=== PATIENT | male | born 1955 | race Caucasian/White ===

== ENCOUNTER 2022-10-25 08:41 | Day surgery (SDC) | payer OTHER ==
[~2022-10-25 08:41] MED LIST: LACTATED RINGERS 1,000 ML IV SCH
[2022-10-25 09:15] VITALS: RESP 16; TEMP 97.8
[2022-10-25 09:29] LABS: Glucose,Whole Blood 102 mg/dL (70-110)
[2022-10-25] MEDS ORDERED: PROPOFOL 10 MG/ML 20 ML VIAL IV ONE (09:35)
[2022-10-25] MEDS ORDERED: LIDOCAINE 2% INJ 20 MG/ML (2 ML VIAL) ONE (09:35)
--- NOTE | 2022-10-25 09:46 | P.PCN ---
Date of Procedure: 10/25/22 Procedure(s) Performed: BRIEF HISTORY: Patient is a 67-year-old, pleasant, white female scheduled for an upper endoscopy as a part of evaluation of long-standing history of GERD. Presently on Protonix 40 mg daily.. PROCEDURE PERFORMED: Esophagogastroduodenoscopy with biopsy. PREOPERATIVE DIAGNOSIS: Long-standing history of GERD. IV sedation per anesthesia. PROCEDURE: After informed consent was obtained, the patient was brought into the endoscopy unit. IV sedation was administered by Anesthesia under continuous monitoring. Initially the Olympus GIF-140 video endoscope was inserted into the mouth. Esophagus intubated without any difficulty. It was gradually advanced into the stomach and duodenum and carefully examined. The bulb and the second part of the duodenum appeared normal. The scope at this time was withdrawn to the stomach, adequately insufflated with air, and upon careful examination, mucosa of the antrum, had scattered areas of erythema consistent with gastritis. Biopsies were done from this area. Mucosa of the body, cardia and the fundus appeared normal. The scope was then withdrawn into the esophagus. The GE junction was located at 40 cm from the incisors. There was a tongue of Rinaldi's appearing mucosa extending 1 cm proximal to the GE junction which was biopsied. The rest of the esophagus appeared normal. There were no erosions or ulcerations seen and the patient tolerated the procedure well. IMPRESSION: 1. Short segment Rinaldi's esophagus extending 39-40 cm from the incisors status post biopsy. 2. Mild antral gastritis. RECOMMENDATIONS: The findings of this examination were discussed with the patient as well as his family. He was advised to follow with the biopsy results. If the biopsy confirms the presence of Rinaldi's esophagus he can have a repeat upper endoscopy every 3 years. In the meantime he will continue on Protonix 40 mg daily and follow antireflux measures..
[2022-10-25 09:56] VITALS: PULSE 83
[2022-10-25 10:22] VITALS: BP 119/74
== END 2022-10-25 10:34 | disposition home or self-care (01) ==
LOC: ORWHC2ENDO 08:41
PROVIDERS: ATTEND Internal Medicine Gastroenterology
DX: K29.50 Unspecified chronic gastritis without bleeding (principal); K22.70 Barrett's esophagus without dysplasia; K21.00 Gastro-esophageal reflux disease with esophagitis, without bleeding; I48.91 Unspecified atrial fibrillation; Z79.899 Other long term (current) drug therapy; I10 Essential (primary) hypertension; E78.5 Hyperlipidemia, unspecified; E11.9 Type 2 diabetes mellitus without complications; Z79.02 Long term (current) use of antithrombotics/antiplatelets; Z79.82 Long term (current) use of aspirin; Z88.2 Allergy status to sulfonamides; Z79.85 Long-term (current) use of injectable non-insulin antidiabetic drugs
CPT/HCPCS: 88305; 43239; J2704; J2001

== ENCOUNTER 2023-07-10 10:12 | Day surgery (SDC) | payer OTHER ==
[~2023-07-10 10:12] MED LIST changes: +LIDOCAINE 1% (10MG/ML) FOR IV START INTRADERMA PRN; +ONDANSETRON 4 MG/2 ML VIAL IVP PRN
[2023-07-10] MEDS ORDERED: LACTATED RINGERS 1,000 ML IV ONE (11:27)
[2023-07-10 11:50] LABS: Glucose,Whole Blood 131 mg/dL (70-110)
[2023-07-10 12:06] VITALS: TEMP 97
[2023-07-10] MEDS ORDERED: PROPOFOL 10 MG/ML 20 ML VIAL IV ONE (12:32)
[2023-07-10] MEDS ORDERED: LIDOCAINE 1% INJ 10MG/ML (20 ML MDV) ONE (12:32)
--- NOTE | 2023-07-10 12:53 | P.PCN ---
Date of Procedure: 07/10/23 Procedure(s) Performed: BRIEF HISTORY: Patient is a 68-year-old pleasant male scheduled for an elective colonoscopy as a part of screening for colon cancer. PROCEDURE PERFORMED: Colonoscopy with snare polypectomy. PREOPERATIVE DIAGNOSIS: Screening for colon cancer. IV sedation per Anesthesia. PROCEDURE: After informed consent was obtained, the patient, was brought into the endoscopy unit. IV sedation was administered by Anesthesia under continuous monitoring. Digital rectal examination was normal. Initially the Olympus CF-160 flexible video colonoscope was then inserted in the rectum, gradually advanced into the cecum without any difficulty. Careful examination was performed as the scope was gradually being withdrawn. Ileocecal valve and the appendiceal orifice were visualized and appeared normal. Prep was excellent. Mucosa of the cecum, had a 5 limited polyp that was removed by cold snare polypectomy. Rest of the ascending colon, transverse colon, appeared normal. In the descending colon there was a 4 mm polyp that was removed by snare polypectomy. Rest of descending colon, sigmoid colon, and rectum appeared normal. Retroflexion was performed in the rectum and no lesions were seen. The patient tolerated the procedure well. Impression: 5 mm cecal polyp status post cold snare polypectomy 4 mm desscending colon polyp status post cold snare polypectomy . RECOMMENDATIONS: Findings of this examination were discussed with the patient .as well as her family. He was advised to follow with the biopsy results. If the biopsy reveals adenoma he can have a repeat colonoscopy in 5 years.
[2023-07-10 12:56] VITALS: RESP 16
[2023-07-10 13:04] LABS: Glucose,Whole Blood 111 mg/dL (70-110)
[2023-07-10 13:20] VITALS: BP 133/80; PULSE 82
== END 2023-07-10 13:33 | disposition home or self-care (01) ==
LOC: ORWHC2ENDO 10:12
PROVIDERS: ATTEND Internal Medicine Gastroenterology
DX: Z12.11 Encounter for screening for malignant neoplasm of colon (principal); D12.4 Benign neoplasm of descending colon; I10 Essential (primary) hypertension; I48.91 Unspecified atrial fibrillation; F17.200 Nicotine dependence, unspecified, uncomplicated; E11.9 Type 2 diabetes mellitus without complications; K21.9 Gastro-esophageal reflux disease without esophagitis; Z86.010 Personal history of colon polyps; Z88.2 Allergy status to sulfonamides; Z79.899 Other long term (current) drug therapy
CPT/HCPCS: 45385; 88305

== ENCOUNTER 2024-09-23 21:09 | Emergency (ER) | payer OTHER ==
[2024-09-23 21:19] VITALS: RESP 16
--- NOTE | 2024-09-23 21:49 | CT ---
EXAMINATION TYPE: CT brain cspine wo con CT DLP: 1668.3 mGycm, Automated exposure control for dose reduction was used. DATE OF EXAM: 09/23/2024 9:39 PM COMPARISON: None.. CLINICAL INDICATION:Male, 69 years old with history of fall; Pt was taking garbage out & tripped. On Eliquis. Denies pain. + ETOH use, pain TECHNIQUE: Brain: Multiple axial CT images of the brain were obtained without IV contrast. Cspine: Axial CT images from the skull base to the inferior aspect of T2 we obtained without intraven ous contrast. Coronal and sagittal reformatted images were also reviewed. FINDINGS: Brain: Extra-axial spaces: No abnormal extra-axial fluid collections. Ventricular system: Within normal limits Cerebral parenchyma: Cerebral atrophy. No acute intraparenchymal hemorrhage or mass effect. The quinones -white junction is well differentiated. Scattered hypoattenuating areas are seen within the periventr icular white matter. Cerebellum: Unremarkable. Mass effect: No evidence of midline shift. Intracranial vasculature: Atherosclerotic calcifications of the intracranial vessels. Soft tissues: Right forehead near midline soft tissue foci of gas and stranding consistent with lacer ation. Calvarium/osseous structures: No depressed skull fracture. Paranasal sinuses and mastoid air cells: The mastoid air cells are clear. Mild mucosal thickening of the ethmoid sinuses. Remaining visualized paranasal sinuses are clear. Visualized orbits: Orbital contents are intact. Cervical spine: Fracture: None. Osseous structures: Multilevel degenerative disc disease changes with endplate spurring and disc oste ophyte complex's. Vertebral alignment: Degenerative grade 1 anterolisthesis of C7 on T1. Spinal canal/Neural Foramina: Disc osteophyte complexes at C3-C4, C4-C5, C5-C6 and C6-C7 with at leas t mild spinal canal stenosis. Facet joint uncovertebral joint arthropathy scattered throughout the ce rvical spine with varying degrees of neural foraminal stenosis. Neck soft tissues: Prevertebral soft tissues are within normal limits. Other: The airway is patent. The lung apices are clear. Bilateral carotid bulb calcifications. IMPRESSION: 1. No acute intracranial process. 2. Nonspecific white matter changes, likely secondary to chronic small vessel ischemic disease. 3. Acute right forehead soft tissue laceration. 4. No evidence of cervical spine fracture. 5. Moderate multilevel degenerative disc disease. [facility], , 09/23/2024 9:47 PM
[2024-09-23 22:01] VITALS: TEMP 98.3
[2024-09-23] MEDS: TOPICAL SKIN ADHESIVE 1 EACH AMP TOPICAL ONE (22:10)
--- NOTE | 2024-09-23 22:17 | ED ---
Fall HPI - General Chief Complaint: Fall Stated Complaint: Fall-Head Injury-Blood Thinners Time Seen by Provider: 09/23/24 21:23 Source: patient, RN notes reviewed, old records reviewed Mode of arrival: wheelchair Limitations: no limitations - History of Present Illness Initial Comments: This is a 69-year-old male trip and fall fall with alcohol intoxication forehead laceration. 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 Witnessed: yes, by family Place Fall Occurred: home Loss of Consciousness: none Prolonged Down Time?: no Symptoms Prior to Fall: none Location: head, face Severity: moderate Severity scale (1-10): 6 Quality: sharp, stabbing Context: tripped/slipped, alcohol use Associated Symptoms: denies - Related Data Home Medications Medication Instructions Recorded Confirmed Aspirin 81 mg PO DAILY 10/20/22 07/10/23 Atorvastatin [Lipitor] 80 mg PO HS 10/20/22 07/10/23 Clopidogrel [Plavix] 75 mg PO DAILY 10/20/22 07/10/23 Dapagliflozin/Metformin HCl 1 tab PO BID 10/20/22 07/10/23 [Xigduo Xr 5 mg-1,000 mg Tablet] Dulaglutide [Trulicity] 0.75 mg SQ WE 10/20/22 07/10/23 Ezetimibe [Zetia] 10 mg PO DAILY 10/20/22 07/10/23 Furosemide [Lasix] 40 mg PO DAILY 10/20/22 07/10/23 Losartan(Unknown Dose) 1 tab PO DAILY 10/20/22 07/10/23 Metoprolol Tartrate [Lopressor] 25 mg PO BID 10/20/22 07/10/23 Pantoprazole [Protonix] 40 mg PO DAILY 10/20/22 07/10/23 Potassium Chloride ER [K-Dur 20] 20 meq PO DAILY 10/20/22 07/10/23 glipiZIDE [Glucotrol] 5 mg PO AC-BRKFST 10/20/22 07/10/23 Allergies Allergy/AdvReac Type Severity Reaction Status Date / Time Sulfa (Sulfonamide Allergy Unknown Verified 07/10/23 11:33 Antibiotics) Childhood nickel sulfate Allergy hives Uncoded 07/10/23 11:33 Review of Systems ROS Statement: Those systems with pertinent positive or pertinent negative responses have been documented in the HPI. ROS Other: All systems not noted in ROS Statement are negative. Past Medical History Past Medical History: Atrial Fibrillation, Cancer, Diabetes Mellitus, GERD/Reflux, Hyperlipidemia, Hypertension, Osteoarthritis (OA), Vascular Disorder Additional Past Medical History / Comment(s): skin cancer, DDD, past hx. a-fib-had ablation, just had a tooth pulled History of Any Multi-Drug Resistant Organisms: None Reported Past Surgical History: Cardiac Ablation Additional Past Surgical History / Comment(s): stent placement to open circulation to right leg Past Anesthesia/Blood Transfusion Reactions: No Reported Reaction Past Psychological History: No Psychological Hx Reported Smoking Status: Former smoker Past Alcohol Use History: Heavy - Past Family History Mother Family Medical History: Deep Vein Thrombosis (DVT) Father Family Medical History: Deep Vein Thrombosis (DVT) Sister(s) Family Medical History: Deep Vein Thrombosis (DVT) General Exam Limitations: no limitations General appearance: alert, in no apparent distress Head exam: Present: normocephalic, normal inspection. Absent: atraumatic (3 cm forehead laceration) Eye exam: Present: normal appearance, PERRL, EOMI. Absent: scleral icterus, conjunctival injection, periorbital swelling ENT exam: Present: normal exam, mucous membranes moist Neck exam: Present: normal inspection. Absent: tenderness, meningismus, lymphadenopathy Respiratory exam: Present: normal lung sounds bilaterally. Absent: respiratory distress, wheezes, rales, rhonchi, stridor Cardiovascular Exam: Present: regular rate, normal rhythm, normal heart sounds. Absent: systolic murmur, diastolic murmur, rubs, gallop, clicks GI/Abdominal exam: Present: soft, normal bowel sounds. Absent: distended, tenderness, guarding, rebound, rigid Extremities exam: Present: normal inspection, full ROM, normal capillary refill. Absent: tenderness, pedal edema, joint swelling, calf tenderness Back exam: Present: normal inspection Neurological exam: Present: alert, oriented X3, CN II-XII intact Psychiatric exam: Present: normal affect, normal mood Skin exam: Present: warm, dry, intact, normal color. Absent: rash Course Vital Signs 09/23/24 09/23/24 09/23/24 21:15 21:53 22:25 Temperature 97.7 F 98.3 F Pulse Rate 95 82 Respiratory 16 16 Rate Blood Pressure 125/67 130/79 O2 Sat by Pulse 96 97 Oximetry - Reevaluation(s) Reevaluation #1: Medical records reviewed Reevaluation #2: Patient's symptoms improved Reevaluation #3: Patient informed of results questions answered Reevaluation #4: Was pt. sent in by a medical professional or institution (, [facility], [facility], urgent care, hospital, or longterm...) When possible be specific @ -no Did you speak to anyone other than the patient for history (EMS, parent, family, police, friend...)? What history was obtained from this source @ -no Did you review nursing and triage notes (agree or disagree)? Why? @ -agree Are old charts reviewed (outside hosp., previous admission, EMS record, old EKG, old radiological studies, urgent care reports/EKG's, longterm records)? Report findings @ -yes Differential Diagnosis (chest pain, altered mental status, abdominal pain women, abdominal pain men, vaginal bleeding, weakness, fever, dyspnea, syncope, headache, dizziness, GI bleed, back pain, seizure, CVA, palpatations, mental health, musculoskeletal)? @ -prior EKG interpreted by me (3pts min.). @ -yes X-rays interpreted by me (1pt min.). @ -yes negative for acute disease CT interpreted by me (1pt min.). @ -no U/S interpreted by me (1pt. min.). @ -no What testing was considered but not performed or refused? (CT, X-rays, U/S, labs)? Why? @ -none What meds were considered but not given or refused? Why? @ -none Did you discuss the management of the patient with other professionals (professionals i.e. , [facility], [facility], lab, RT, psych nurse, social security specialist, escort blind, teacher, title officer, pillowcase turner)? Give summary @ -no Was smoking cessation discussed for >3mins.? @ -no Was critical care preformed (if so, how long)? @ -no Were there social determinants of health that impacted care today? How? (Homelessness, low income, unemployed, alcoholism, drug addiction, transportation, low edu. Level, literacy, decrease access to med. care, long term, rehab)? @ -none Was there de-escalation of care discussed even if they declined (Discuss DNR or withdrawal of care, Hospice)? DNR status @ -no What co-morbidities impacted this encounter? (DM, HTN, Smoking, COPD, CAD, Cancer, CVA, ARF, Chemo, Hep., AIDS, mental health diagnosis, sleep apnea, morbid obesity)? @ -none Was patient admitted / discharged? Hospital course, mention meds given and route, prescriptions, significant lab abnormalities, going to OR and other pertinent info. @ - Undiagnosed new problem with uncertain prognosis? @ -no Drug Therapy requiring intensive monitoring for toxicity (Heparin, Nitro, Insulin, Cardizem)? @ -no Were any procedures done? @ -no Diagnosis/symptom? @ - Acute, or Chronic, or Acute on Chronic? @ -Acute Uncomplicated (without systemic symptoms) or Complicated (systemic symptoms)? @ -Complicated Side effects of treatment? @ -no Exacerbation, Progression, or Severe Exacerbation? @ -exacerbation Poses a threat to life or bodily function? How? (Chest pain, USA, PA, pneumonia, PE, COPD, DKA, ARF, appy, cholecystitis, CVA, Diverticulitis, Homicidal, Suicidal, threat to staff... and all critical care pts) @ -yes Procedures - Laceration Laceration #1 Consent Obtained: verbal consent Indication: laceration Site: face Size (cm): 3 Description: linear Depth: simple, single layer Size of Sutures: 5-0, other (Skin glue) Technique: simple, interrupted Patient Tolerated Procedure: well Medical Decision Making - Medical Decision Making 69 male for alcohol intoxication trip and fall with head laceration, laceration was repaired here in the ER 3 cm for laceration, patient feels improved and can be discharged home CT scan negative - Radiology Data Radiology results: report reviewed (CT brain C-spine negative for acute dis ease), image reviewed Disposition Clinical Impression: Fall, Head injury, Laceration of forehead Disposition: HOME SELF-CARE Condition: Fair Instructions (If sedation given, give patient instructions): Fall Prevention for Older Adults (ED), Skin Adhesive Care (ED) Is patient prescribed a controlled substance at d/c from ED?: No Referrals: Arthur Howard MD [Primary Care Provider] - 1-2 days Time of Disposition: 22:00
[2024-09-23 22:26] VITALS: BP 130/79; PULSE 82
== END 2024-09-23 22:26 | disposition home or self-care (01) ==
LOC: EC 21:09
DX: S01.81XA Laceration without foreign body of other part of head, initial encounter (principal); F10.129 Alcohol abuse with intoxication, unspecified; Z87.891 Personal history of nicotine dependence; Z88.2 Allergy status to sulfonamides; Z88.8 Allergy status to other drugs, medicaments and biological substances; W01.0XXA Fall on same level from slipping, tripping and stumbling without subsequent striking against object, initial encounter
CPT/HCPCS: 12013; 70450; 72125; 99283

== ENCOUNTER → 2024-10-21 | Outpatient (CLI) | payer OTHER ==
[2024-10-21 15:07] LABS: ALT 48 U/L (10-49); AST 56 U/L (14-35); Albumin 4.1 g/dL (3.8-4.9); Albumin/Globulin Ratio 1.52 Ratio (1.60-3.17); Alkaline Phosphatase 63 U/L (41-126); BUN/Creat Ratio 12.58 Ratio (12.00-20.00); Blood Urea Nitrogen 15.1 mg/dL (9.0-27.0); Calcium 10.4 mg/dL (8.7-10.3); Carbon Dioxide 27.7 mmol/L (21.6-31.8); Chloride 97 mmol/L (96-109); Globulin 2.7 g/dL (1.6-3.3); Glucose 104 mg/dL (70-110); Potassium 3.7 mmol/L (3.5-5.5); Sodium 140 mmol/L (135-145); Total Bilirubin 0.6 mg/dL (0.3-1.2); Total Protein 6.8 g/dL (6.2-8.2)
== END | disposition home or self-care (01) ==
LOC: LABWHC1 09:25
PROVIDERS: ATTEND Family Medicine
DX: E11.9 Type 2 diabetes mellitus without complications (principal)
CPT/HCPCS: 36415; 80053; 83036

== ENCOUNTER 2024-10-26 23:50 | Inpatient (IN) | payer OTHER ==
--- NOTE | 2024-10-26 23:54 | ED ---
Syncope HPI - General Stated Complaint: Syncope Time Seen by Provider: 10/26/24 23:53 Source: RN notes reviewed, old records reviewed Mode of arrival: ambulatory Limitations: no limitations - History of Present Illness Initial Comments: This is a 69-year-old male with multiple syncopal events throughout the day 1 event with resultant fall with head injury did hit his head on Eliquis for history of atrial fibrillation MD Complaint: loss of consciousness, collapsed, other (200) -: days(s) Prodromal Symptoms: headache -: second(s) Witnessed: yes - by bystander Injuries Sustained Associated with Event: None Current Symptoms: none History: previous syncopal episode Context: during exertion, getting out of bed Treatments Prior to Arrival: none - Related Data Home Medications Medication Instructions Recorded Confirmed Aspirin 81 mg PO DAILY 10/20/22 10/27/24 Atorvastatin [Lipitor] 80 mg PO HS 10/20/22 10/27/24 Dapagliflozin/Metformin HCl 1 tab PO DAILY 10/20/22 10/27/24 [Xigduo Xr 5 mg-1,000 mg Tablet] Ezetimibe [Zetia] 10 mg PO DAILY 10/20/22 10/27/24 Furosemide [Lasix] 40 mg PO DAILY 10/20/22 10/27/24 Metoprolol Tartrate [Lopressor] 25 mg PO BID 10/20/22 10/27/24 Potassium Chloride ER [K-Dur 20] 20 meq PO HS 10/20/22 10/27/24 Apixaban [Eliquis] 5 mg PO BID 10/27/24 10/27/24 Losartan/Hydrochlorothiazide 1 tab PO DAILY 10/27/24 10/27/24 [Hyzaar 100-25 Tablet] Semaglutide [Ozempic] 1 mg SQ WE 10/27/24 10/27/24 glipiZIDE XL [Glucotrol XL] 2.5 mg PO HS 10/27/24 10/27/24 Allergies Allergy/AdvReac Type Severity Reaction Status Date / Time Sulfa (Sulfonamide Allergy Rash/Hives Verified 10/27/24 07:32 Antibiotics) nickel sulfate Allergy hives Uncoded 10/27/24 07:32 Review of Systems ROS Statement: Those systems with pertinent positive or pertinent negative responses have been documented in the HPI. ROS Other: All systems not noted in ROS Statement are negative. Past Medical History Past Medical History: Atrial Fibrillation, Cancer, Diabetes Mellitus, GERD/Reflux, Hyperlipidemia, Hypertension, Osteoarthritis (OA), Vascular Disorder Additional Past Medical History / Comment(s): skin cancer, DDD, past hx. a-fib-had ablation, just had a tooth pulled History of Any Multi-Drug Resistant Organisms: None Reported Past Surgical History: Cardiac Ablation Additional Past Surgical History / Comment(s): stent placement to open circulation to right leg Past Anesthesia/Blood Transfusion Reactions: No Reported Reaction Past Psychological History: No Psychological Hx Reported Smoking Status: Former smoker Past Alcohol Use History: Heavy - Past Family History Mother Family Medical History: Deep Vein Thrombosis (DVT) Father Family Medical History: Deep Vein Thrombosis (DVT) Sister(s) Family Medical History: Deep Vein Thrombosis (DVT) General Exam General appearance: alert, in no apparent distress Head exam: Present: atraumatic, normocephalic, normal inspection Eye exam: Present: normal appearance, PERRL, EOMI. Absent: scleral icterus, conjunctival injection, periorbital swelling ENT exam: Present: normal exam, mucous membranes moist Neck exam: Present: normal inspection. Absent: tenderness, meningismus, lymphadenopathy Respiratory exam: Present: normal lung sounds bilaterally. Absent: respiratory distress, wheezes, rales, rhonchi, stridor Cardiovascular Exam: Present: regular rate, normal rhythm, normal heart sounds. Absent: systolic murmur, diastolic murmur, rubs, gallop, clicks GI/Abdominal exam: Present: soft, normal bowel sounds. Absent: distended, tenderness, guarding, rebound, rigid Extremities exam: Present: normal inspection, full ROM, normal capillary refill. Absent: tenderness, pedal edema, joint swelling, calf tenderness Back exam: Present: normal inspection Neurological exam: Present: alert, oriented X3, CN II-XII intact Psychiatric exam: Present: normal affect, normal mood Skin exam: Present: warm, dry, intact, normal color. Absent: rash Course Vital Signs 10/26/24 10/27/24 10/27/24 23:58 01:02 03:00 Temperature 98.0 F Pulse Rate 93 79 77 Respiratory 14 17 10 L Rate Blood Pressure 119/61 168/77 105/66 O2 Sat by Pulse 99 97 100 Oximetry 05/12/25 05/12/25 05/12/25 04:00 07:00 07:55 Temperature 98.3 F Pulse Rate 77 49 L 80 Respiratory 15 10 L 18 Rate Blood Pressure 113/89 127/66 141/67 O2 Sat by Pulse 100 100 97 Oximetry - Reevaluation(s) Reevaluation #1: 10/27/24 00:06 Records reviewed Reevaluation #2: 10/27/24 00:06 No recurrent syncope here in the ER Reevaluation #4: Was pt. sent in by a medical professional or institution (REJI Burden, FLOTATION OPERATOR, urgent care, hospital, or residential...) When possible be specific @ -no Did you speak to anyone other than the patient for history (EMS, parent, family, police, friend...)? What history was obtained from this source @ -no Did you review nursing and triage notes (agree or disagree)? Why? @ -agree Are old charts reviewed (outside hosp., previous admission, EMS record, old EKG, old radiological studies, urgent care reports/EKG's, residential records)? Report findings @ -yes Differential Diagnosis (chest pain, altered mental status, abdominal pain women, abdominal pain men, vaginal bleeding, weakness, fever, dyspnea, syncope, headache, dizziness, GI bleed, back pain, seizure, CVA, palpatations, mental health, musculoskeletal)? @ -prior EKG interpreted by me (3pts min.). @ -yes X-rays interpreted by me (1pt min.). @ -yes negative for acute disease CT interpreted by me (1pt min.). @ -no U/S interpreted by me (1pt. min.). @ -no What testing was considered but not performed or refused? (CT, X-rays, U/S, labs)? Why? @ -none What meds were considered but not given or refused? Why? @ -none Did you discuss the management of the patient with other professionals (professionals i.e. REJI Burden, FLOTATION OPERATOR, lab, RT, psych nurse, social sciences chair, gauge checker, teacher, low altitude air defense officer, therapeutic case manager)? Give summary @ -no Was smoking cessation discussed for >3mins.? @ -no Was critical care preformed (if so, how long)? @ -no Were there social determinants of health that impacted care today? How? (Homelessness, low income, unemployed, alcoholism, drug addiction, transportation, low edu. Level, literacy, decrease access to med. care, fci, re hab)? @ -none Was there de-escalation of care discussed even if they declined (Discuss DNR or withdrawal of care, Hospice)? DNR status @ -no What co-morbidities impacted this encounter? (DM, HTN, Smoking, COPD, CAD, Cancer, CVA, ARF, Chemo, Hep., AIDS, mental health diagnosis, sleep apnea, morbid obesity)? @ -none Was patient admitted / discharged? Hospital course, mention meds given and route, prescriptions, significant lab abnormalities, going to OR and other pertinent info. @ - Undiagnosed new problem with uncertain prognosis? @ -no Drug Therapy requiring intensive monitoring for toxicity (Heparin, Nitro, Insulin, Cardizem)? @ -no Were any procedures done? @ -no Diagnosis/symptom? @ - Acute, or Chronic, or Acute on Chronic? @ -Acute Uncomplicated (without systemic symptoms) or Complicated (systemic symptoms)? @ -Complicated Side effects of treatment? @ -no Exacerbation, Progression, or Severe Exacerbation? @ -exacerbation Poses a threat to life or bodily function? How? (Chest pain, USA, MT, pneumonia, PE, COPD, DKA, ARF, appy, cholecystitis, CVA, Diverticulitis, Homicidal, Suicidal, threat to staff... and all critical care pts) @ -yes Reevaluation #5: Differential Syncope: Valvular disease, hypertrophic cardiomyopathy, pulmonary embolism, tamponade, tachycardia, bradycardia, MT, hypovolemia, hemorrhage, dissection, anemia, intracranial hemorrhage, seizure, hypoglycemia, carbon monoxide poisoning, this is not meant to be an all-inclusive list. EKG Findings - EKG Comments: EKG Findings:: EKG is A-fib 94 QRS 100 QTc 436 - EKG Results: EKG: interpreted by DANYELL Medical Decision Making - Lab Data Result diagrams: 10/27/24 00:10 10/27/24 02:17 Lab Results 10/27/24 10/27/24 10/27/24 Range/Units 00:10 00:10 01:19 WBC 11.14 H (4.50-10.00) 10*3/uL RBC 4.39 L (4.40-5.60) 10*6/uL Hgb 14.5 (13.0-17.0) g/dL Hct 39.9 (39.6-50.0) % MCV 90.9 (80.0-97.0) fL MCH 33.0 H (27.0-32.0) pg MCHC 36.3 (32.0-37.0) g/dL Plt Count 229 (140-440) 10*3/uL MPV 9.8 (9.5-12.2) fL Immature Gran % (Auto) 0.3 % Neutrophils % 68.3 % Lymphocytes % 21.6 % Monocytes % 8.0 % Eosinophils % 1.3 % Basophils % 0.5 % Immature Gran # 0.03 (0.00-0.04) 10*3/uL Neutrophils # 7.60 (1.80-7.70) 10*3/uL Lymphocytes # 2.41 (0.90-5.00) 10*3/uL Monocytes # 0.89 (0.20-1.00) 10*3/uL Eosinophils # 0.15 (0.04-0.35) 10*3/uL Basophils # 0.06 (0.00-0.10) 10*3/uL PT 10.9 (10.0-12.5) sec INR 1.0 (<1.2) APTT 19.1 L (22.0-30.0) sec D-Dimer 0.32 (<0.60) mg/L FEU Sodium 130 L (137-145) mmol/L Potassium 3.0 L (3.5-5.1) mmol/L Chloride 88 L (98-107) mmol/L Carbon Dioxide 33 H (22-30) mmol/L Anion Gap 9 mmol/L BUN 26 H (9-20) mg/dL Creatinine 2.32 H (0.66-1.25) mg/dL Est GFR (CKD-EPI)AfAm 32 (>60 ml/min/1.73 sqM) Est GFR (CKD-EPI)NonAf 28 (>60 ml/min/1.73 sqM) Glucose 132 H (74-99) mg/dL Calcium 17.8 H* (8.4-10.2) mg/dL Magnesium 1.5 L (1.6-2.3) mg/dL Total Bilirubin 1.9 H (0.2-1.3) mg/dL AST 89 H (17-59) U/L ALT 59 H (4-49) U/L Alkaline Phosphatase 53 (38-126) U/L Troponin I (0.000-0.034) ng/mL Total Protein 6.3 (6.3-8.2) g/dL Albumin 3.7 (3.5-5.0) g/dL Serum Alcohol <10 mg/dL 10/27/24 10/27/24 10/27/24 Range/Units 01:19 02:17 02:17 WBC (4.50-10.00) 10*3/uL RBC (4.40-5.60) 10*6/uL Hgb (13.0-17.0) g/dL Hct (39.6-50.0) % MCV (80.0-97.0) fL MCH (27.0-32.0) pg MCHC (32.0-37.0) g/dL Plt Count (140-440) 10*3/uL MPV (9.5-12.2) fL Immature Gran % (Auto) % Neutrophils % % Lymphocytes % % Monocytes % % Eosinophils % % Basophils % % Immature Gran # (0.00-0.04) 10*3/uL Neutrophils # (1.80-7.70) 10*3/uL Lymphocytes # (0.90-5.00) 10*3/uL Monocytes # (0.20-1.00) 10*3/uL Eosinophils # (0.04-0.35) 10*3/uL Basophils # (0.00-0.10) 10*3/uL PT (10.0-12.5) sec INR (<1.2) APTT (22.0-30.0) sec D-Dimer (<0.60) mg/L FEU Sodium 128 L (137-145) mmol/L Potassium 3.6 (3.5-5.1) mmol/L Chloride 87 L (98-107) mmol/L Carbon Dioxide 34 H (22-30) mmol/L Anion Gap 7 mmol/L BUN 28 H (9-20) mg/dL Creatinine 2.20 H (0.66-1.25) mg/dL Est GFR (CKD-EPI)AfAm 34 (>60 ml/min/1.73 sqM) Est GFR (CKD-EPI)NonAf 30 (>60 ml/min/1.73 sqM) Glucose 105 H (74-99) mg/dL Calcium 18.9 H* (8.4-10.2) mg/dL Magnesium (1.6-2.3) mg/dL Total Bilirubin 2.3 H (0.2-1.3) mg/dL AST 95 H (17-59) U/L ALT 63 H (4-49) U/L Alkaline Phosphatase 50 (38-126) U/L Troponin I 0.133 H* 0.133 H* (0.000-0.034) ng/mL Total Protein 6.6 (6.3-8.2) g/dL Albumin 3.8 (3.5-5.0) g/dL Serum Alcohol mg/dL Disposition Clinical Impression: Syncope, Head injury, Nausea & vomiting, Fainting spell, Dehydration, Hypomagnesemia, Hypokalemia, Hypercalcemia, SLADE (acute kidney injury), NSTEMI (non-ST elevated myocardial infarction) Disposition: ADMITTED IP TO THIS HOSP Condition: Serious Is patient prescribed a controlled substance at d/c from ED?: No Time of Disposition: 01:00
[2024-10-27 00:22] LABS: Basophils # (A) 0.06 10*3/uL (0.00-0.10); Basophils % (A) 0.5 %; Eosinophils # (A) 0.15 10*3/uL (0.04-0.35); Eosinophils % (A) 1.3 %; HCT 39.9 % (39.6-50.0); HGB 14.5 g/dL (13.0-17.0); Lymphocytes # (A) 2.41 10*3/uL (0.90-5.00); Lymphocytes % (A) 21.6 %; MCHC 36.3 g/dL (32.0-37.0); MCV 90.9 fL (80.0-97.0); Mean Platelet Volume 9.8 fL (9.5-12.2); Monocytes # (A) 0.89 10*3/uL (0.20-1.00); Neutrophils % (A) 68.3 %; Platelet Count 229 10*3/uL (140-440); RBC 4.39 10*6/uL (4.40-5.60); RDW 14.3 % (11.5-14.5); WBC 11.14 10*3/uL (4.50-10.00)
[2024-10-27] MEDS: SODIUM CHLORIDE 0.9% 1,000 ML IV STA (00:38)
[2024-10-27] MEDS: SODIUM CHLORIDE 0.9% 500 ML 500 ML IV STA (00:38)
[2024-10-27 00:47] LABS: Prothrombin Time 10.9 sec (10.0-12.5)
[2024-10-27 00:53] LABS: Partial Thromboplastin Time 19.1 sec (22.0-30.0)
--- NOTE | 2024-10-27 00:55 | CT ---
EXAM: CT Head Without Intravenous Contrast CLINICAL HISTORY: Fall TECHNIQUE: Axial computed tomography images of the head/brain without intravenous contrast. CTDI is 45.2 mGy and DLP is 1128 mGy-cm. This CT exam was performed using one or more of the following dose reduction techniques: automated exposure control, adjustment of the mA and/or kV according to patient size, and/or use of iterative reconstruction technique. COMPARISON: No relevant prior studies available. FINDINGS: Brain: No intracranial hemorrhage. No significant mass-effect. No cortical infarct. Diffuse chronic prominence of the cerebral sulci and sylvian fissures incidentally noted. No significant white matter disease. Ventricles: Unremarkable. No ventriculomegaly. Bones/joints: Unremarkable. No acute fracture. Soft tissues: No significant overlying acute traumatic soft tissue abnormality. No radiopaque foreign body. Sinuses: No acute traumatic injury involving the paranasal sinuses. Incidental postoperative changes involving the nasal turbinates and medial maxillary sinus wall bilaterally. Mastoid air cells: Unremarkable as visualized. No mastoid effusion. IMPRESSION: No acute intracranial process identified. EXAM: CT Cervical Spine Without Intravenous Contrast CLINICAL HISTORY: Fall TECHNIQUE: Axial computed tomography images of the cervical spine without intravenous contrast. CTDI is 14.5 mGy and DLP is 435.3 mGy-cm. This CT exam was performed using one or more of the following dose reduction techniques: automated exposure control, adjustment of the mA and/or kV according to patient size, and/or use of iterative reconstruction technique. COMPARISON: No relevant prior studies available. FINDINGS: Vertebrae: The vertebral bodies are intact without acute osseous traumatic injury. 1-2 mm retrolisthesis at each cervical level from C3- C6 level. 2 mm anterolisthesis involving C7 on T1. The facet joints are well aligned without subluxation or dislocation. The pedicles, transverse processes and spinous processes are intact. Diffuse facet hypertrophic arthrosis noted bilaterally. Discs/spinal canal/neural foramina: Moderate to moderately severe disc spondylosis with narrowing and circumferential disc marginal osteophytes from C3-4 through C6-7. Disc space narrowing with vacuum phenomenon at C7-T1. No acute central canal stenosis with multilevel chronic narrowing noted. Soft tissues: Unremarkable. Lung apices: The included lung apices demonstrate no evidence for acute traumatic injury. IMPRESSION: No acute osseous traumatic injury or significant acute traumatic abnormal alignment involving the cervical spine. Diffuse chronic degenerative changes incidentally noted.
[2024-10-27 01:49] LABS: ALT 59 U/L (4-49); AST 89 U/L (17-59); African American GFR (CKD) 32 (>60 ml/min/1.73 sqM); Albumin 3.7 g/dL (3.5-5.0); Alcohol <10 mg/dL; Alkaline Phosphatase 53 U/L (38-126); Anion Gap 9 mmol/L; Blood Urea Nitrogen 26 mg/dL (9-20); Carbon Dioxide 33 mmol/L (22-30); Chloride 88 mmol/L (98-107); Glucose 132 mg/dL (74-99); Magnesium 1.5 mg/dL (1.6-2.3); Non-African American GFR(CKD) 28 (>60 ml/min/1.73 sqM); Sodium 130 mmol/L (137-145); Total Bilirubin 1.9 mg/dL (0.2-1.3); Total Protein 6.3 g/dL (6.3-8.2)
[2024-10-27 03:08] LABS: ALT 63 U/L (4-49); African American GFR (CKD) 34 (>60 ml/min/1.73 sqM); Albumin 3.8 g/dL (3.5-5.0); Anion Gap 7 mmol/L; Blood Urea Nitrogen 28 mg/dL (9-20); Carbon Dioxide 34 mmol/L (22-30); Chloride 87 mmol/L (98-107); Glucose 105 mg/dL (74-99); Non-African American GFR(CKD) 30 (>60 ml/min/1.73 sqM); Sodium 128 mmol/L (137-145); Total Bilirubin 2.3 mg/dL (0.2-1.3); Total Protein 6.6 g/dL (6.3-8.2)
[2024-10-27 03:31] LABS: AST 95 U/L (17-59); Alkaline Phosphatase 50 U/L (38-126); Potassium 3.6 mmol/L (3.5-5.1)
[2024-10-27 03:54] LABS: Calcium 17.8 mg/dL (8.4-10.2)
[2024-10-27 03:55] LABS: Calcium 18.9 mg/dL (8.4-10.2)
[2024-10-27] MEDS ORDERED: ACETAMINOPHEN TAB 325 MG TAB PO PRN (04:12)
[2024-10-27] MEDS ORDERED: NALOXONE 0.4 MG/ML 1 ML VIAL IV PRN (04:12)
[2024-10-27] MEDS: SODIUM CHLORIDE 0.9% 1,000 ML IV ONE (04:45)
[2024-10-27] MEDS: SODIUM CHLORIDE 0.9% 1,000 ML IV SCH (04:45)
[2024-10-27] MEDS: APIXABAN 5 MG TAB PO SCH (10:06)
[2024-10-27] MEDS: ASPIRIN 81 MG PO SCH (10:06)
[2024-10-27] MEDS: CLOPIDOGREL 75 MG TAB PO SCH (10:08)
[2024-10-27] MEDS: METOPROLOL TARTRATE 25 MG TAB PO SCH (10:08)
--- NOTE | 2024-10-27 10:37 | P.CRDCN ---
History of Present Illness History of present illness: HISTORY OF PRESENTING ILLNESS This is a pleasant 69-year-old male past medical history significant for peripheral vascular disease status post prior angioplasty of the right iliac, paroxysmal atrial fibrillation status post ablation in [place], hypertension, dyslipidemia and diabetes mellitus. He follows in the office with Dr. Woo. We have been asked to see in consultation for syncope. He states yesterday he was struggling with nausea vomiting and while vomiting he passed out. He denies any precipitating symptoms of chest pain, shortness of breath or palpitations. EKG reveals atrial fibrillation heart rate of 94. Laboratory data reviewed, WBC 11, hemoglobin 14.5, platelets 229, D-dimer 0.32, sodium 128, potassium 3.6, creatinine 2.2, calcium 18.9, troponin 0.133, 0.133 and 0.160. Most recent echocardiogram in the office September 2022 revealed preserved LV systolic function with ejection fraction 55%, mild aortic regurgitation and dilated aorta at 3.6 cm. Most recent stress test in the office August 2022 was negative for reversible ischemia. Current daily cardiac medications include aspirin 81 mg daily, Eliquis 5 mg twice daily, losartan/hydrochlorothiazide 100/25 mg daily, metoprolol tartrate 25 mg twice daily, Lasix 40 mg daily, Zetia 10 mg daily, Lipitor 80 mg at bedtime and daily potassium supplementation. Telemetry tracings indicate atrial fibrillation with controlled ventricular rate. REVIEW OF SYSTEMS At the time of my exam: CONSTITUTIONAL: Denies fever or chills. CARDIOVASCULAR: Denies chest pain, shortness of breath, orthopnea, PND or palp itations. RESPIRATORY: Denies cough. GASTROINTESTINAL: Denies abdominal pain, diarrhea, constipation, nausea or vomiting. MUSCULOSKELETAL: Denies myalgias. NEUROLOGIC: Denies numbness, tingling, headache or weakness. ENDOCRINE: Denies fatigue, weight change, polydipsia or polyurina. GENITOURINARY: Denies burning, hematuria or urgency with micturation. HEMATOLOGIC: Denies history of anemia or bleeding. PHYSICAL EXAMINATION Blood pressure 139/69 heart rate 80 afebrile and maintaining oxygen saturation on room air. CONSTITUTIONAL: No apparent distress. HEENT: Head is normocephalic. Pupils are equal, round. Sclerae anicteric. Mucous membranes of the mouth are moist. No JVD. No carotid bruit. CHEST EXAMINATION: Lungs are clear to auscultation. No chest wall tenderness is noted on palpation or with deep breathing. HEART EXAMINATION: Irregular rate and rhythm. S1, S2 heard. No murmurs, gallops or rub. ABDOMEN: Soft, nontender. EXTREMITIES: 2+ peripheral pulses, no lower extremity edema and no calf tenderness. NEUROLOGIC EXAMINATION: Patient is awake, alert and oriented x3. ASSESSMENT Syncope, likely vasovagal secondary to vomiting Dehydration Hypercalcemia Atrial fibrillation, paroxysmal maintained on Eliquis. Currently in A-fib since admission with controlled ventricular rates. Elevated troponin, flat not likely related to myocardial injury secondary to SLADE Acute kidney injury PLAN Obtain 2D echocardiogram and Doppler study to assess cardiac structure and function. Resume Eliquis 5 mg twice daily for thromboembolic protection. Increase metoprolol to 25 mg 3 times daily. Consider oncology work-up for elevated calcium. Thank you kindly for this consultation. Stable from a cardiac perspective. Follow up with Dr. Woo upon discharge. Nurse Practitioner note has been reviewed, I agree with a documented findings and plan of care. Patient was seen and examined. Past Medical History Past Medical History: Atrial Fibrillation, Cancer, Diabetes Mellitus, GERD/Reflux, Hyperlipidemia, Hypertension, Osteoarthritis (OA), Vascular Disorder Additional Past Medical History / Comment(s): skin cancer, DDD, past hx. a-fib-had ablation, just had a tooth pulled History of Any Multi-Drug Resistant Organisms: None Reported Past Surgical History: Cardiac Ablation Additional Past Surgical History / Comment(s): stent placement to open circulation to right leg Past Anesthesia/Blood Transfusion Reactions: No Reported Reaction Past Psychological History: No Psychological Hx Reported Smoking Status: Former smoker Past Alcohol Use History: Heavy Additional Past Alcohol Use History / Comment(s): quit smoking 2007, smoked 30 yrs. 1ppd, drinks around 14 drinks per week or a little less Past Drug Use History: None Reported - Past Family History Mother Family Medical History: Deep Vein Thrombosis (DVT) Father Family Medical History: Deep Vein Thrombosis (DVT) Sister(s) Family Medical History: Deep Vein Thrombosis (DVT) Medications and Allergies Home Medications Medication Instructions Recorded Confirmed Type Aspirin 81 mg PO DAILY 10/20/22 10/27/24 History Atorvastatin [Lipitor] 80 mg PO HS 10/20/22 10/27/24 History Dapagliflozin/Metformin HCl 1 tab PO DAILY 10/20/22 10/27/24 History [Xigduo Xr 5 mg-1,000 mg Tablet] Ezetimibe [Zetia] 10 mg PO DAILY 10/20/22 10/27/24 History Furosemide [Lasix] 40 mg PO DAILY 10/20/22 10/27/24 History Metoprolol Tartrate [Lopressor] 25 mg PO BID 10/20/22 10/27/24 History Potassium Chloride ER [K-Dur 20] 20 meq PO HS 10/20/22 10/27/24 History Apixaban [Eliquis] 5 mg PO BID 10/27/24 10/27/24 History Losartan/Hydrochlorothiazide 1 tab PO DAILY 10/27/24 10/27/24 History [Hyzaar 100-25 Tablet] Semaglutide [Ozempic] 1 mg SQ WE 10/27/24 10/27/24 History glipiZIDE XL [Glucotrol XL] 2.5 mg PO HS 10/27/24 10/27/24 History Allergies Allergy/AdvReac Type Severity Reaction Status Date / Time Sulfa (Sulfonamide Allergy Rash/Hives Verified 10/27/24 07:32 Antibiotics) nickel sulfate Allergy hives Uncoded 10/27/24 07:32 Physical Exam Vitals: Vital Signs Temp Pulse Pulse Resp BP BP Pulse Ox 10/27/24 08:18 98.5 F 80 17 139/69 96 10/27/24 07:55 98.3 F 80 18 141/67 97 10/27/24 07:00 49 L 10 L 127/66 100 10/27/24 04:00 77 15 113/89 100 10/27/24 03:00 77 10 L 105/66 100 10/27/24 01:02 79 17 168/77 97 10/26/24 23:58 98.0 F 93 14 119/61 99 Intake and Output 10/26/24 10/27/24 10/27/24 22:59 06:59 14:59 Other: Voiding Method Toilet Urinal # Voids 1 Weight 103.873 kg 103.873 kg Results 10/27/24 00:10 10/27/24 02:17 Cardiac Enzymes 10/27/24 10/27/24 10/27/24 Range/Units 01:19 01:19 02:17 AST 89 H 95 H (17-59) U/L Troponin I 0.133 H* (0.000-0.034) ng/mL 10/27/24 10/27/24 10/27/24 Range/Units 02:17 06:30 09:48 AST (17-59) U/L Troponin I 0.133 H* 0.160 H* 0.144 H* (0.000-0.034) ng/mL Coagulation 10/27/24 Range/Units 00:10 PT 10.9 (10.0-12.5) sec APTT 19.1 L (22.0-30.0) sec CBC 10/27/24 Range/Units 00:10 WBC 11.14 H (4.50-10.00) 10*3/uL RBC 4.39 L (4.40-5.60) 10*6/uL Hgb 14.5 (13.0-17.0) g/dL Hct 39.9 (39.6-50.0) % Plt Count 229 (140-440) 10*3/uL Comprehensive Metabolic Panel 10/27/24 10/27/24 Range/Units 01:19 02:17 Sodium 130 L 128 L (137-145) mmol/L Potassium 3.0 L 3.6 (3.5-5.1) mmol/L Chloride 88 L 87 L (98-107) mmol/L Carbon Dioxide 33 H 34 H (22-30) mmol/L BUN 26 H 28 H (9-20) mg/dL Creatinine 2.32 H 2.20 H (0.66-1.25) mg/dL Glucose 132 H 105 H (74-99) mg/dL Calcium 17.8 H* 18.9 H* (8.4-10.2) mg/dL AST 89 H 95 H (17-59) U/L ALT 59 H 63 H (4-49) U/L Alkaline Phosphatase 53 50 (38-126) U/L Total Protein 6.3 6.6 (6.3-8.2) g/dL Albumin 3.7 3.8 (3.5-5.0) g/dL Current Medications Generic Name Dose Route Start Last Admin Trade Name Freq PRN Reason Stop Dose Admin Acetaminophen 650 mg 10/27/24 04:12 Acetaminophen Tab 325 Mg Tab PO Q6HR PRN Mild Pain or Fever > 100.5 Apixaban 5 mg 10/27/24 09:15 10/27/24 10:06 Apixaban 5 Mg Tab PO 5 mg BID OLY Administration Protocol Aspirin 81 mg 10/27/24 09:00 10/27/24 10:06 Aspirin 81 Mg PO 81 mg DAILY OLY Administration Atorvastatin Calcium 80 mg 10/27/24 21:00 Atorvastatin 80 Mg Tab PO HS OLY Sodium Chloride 1,000 mls @ 130 mls/hr 10/27/24 04:15 10/27/24 10:08 Saline 0.9% IV Not Given .[id number] [facility] Metoprolol Tartrate 25 mg 10/27/24 16:00 Metoprolol Tartrate 25 Mg Tab PO TID [facility] Naloxone HCl 0.2 mg 10/27/24 04:12 Naloxone 0.4 Mg/Ml 1 Ml Vial IV Q2M PRN Opioid Reversal Intake and Output 10/26/24 10/27/24 10/27/24 22:59 06:59 14:59 Other: Voiding Method Toilet Urinal # Voids 1 Weight 103.873 kg 103.873 kg Patient Weight 10/28/24 06:59 Weight 103.873 kg 10/27/24 00:10 10/27/24 02:17
[2024-10-27] MEDS ORDERED: DEXTROSE 50% SYRINGE 50 ML IVP PRN ×2 (12:02)
--- NOTE | 2024-10-27 12:03 | P.NPCON ---
History of Present Illness - Reason for Consult acute renal failure - History of Present Illness Patient is a 69-year-old male with history of hypertension, type 2 diabetes and peripheral vascular disease. He is admitted to the hospital with complaints of severe nausea and episodes of passing out about 4 times yesterday. Patient stated that it was always associated with the severe nausea and vomiting. No significant diarrhea reported No significant hypotension noted Labs revealed serum calcium of 17.8 and up to 18.9 today. Creatinine was 2.3 on admission and is 2.2 today Maintained on losartan/hydrochlorothiazide Patient reports taking a lot of Tums over the last 2 to 3 days. Past Medical History Past Medical History: Atrial Fibrillation, Cancer, Diabetes Mellitus, GERD/Reflux, Hyperlipidemia, Hypertension, Osteoarthritis (OA), Vascular Disorder Additional Past Medical History / Comment(s): skin cancer, DDD, past hx. a-fib- had ablation, just had a tooth pulled History of Any Multi-Drug Resistant Organisms: None Reported Past Surgical History: Cardiac Ablation Additional Past Surgical History / Comment(s): stent placement to open circulation to right leg Past Anesthesia/Blood Transfusion Reactions: No Reported Reaction Past Psychological History: No Psychological Hx Reported Smoking Status: Former smoker Past Alcohol Use History: Heavy Additional Past Alcohol Use History / Comment(s): quit smoking 2007, smoked 30 y rs. 1ppd, drinks around 14 drinks per week or a little less Past Drug Use History: None Reported - Past Family History Mother Family Medical History: Deep Vein Thrombosis (DVT) Father Family Medical History: Deep Vein Thrombosis (DVT) Sister(s) Family Medical History: Deep Vein Thrombosis (DVT) Medications and Allergies Home Medications Medication Instructions Recorded Confirmed Type Aspirin 81 mg PO DAILY 10/20/22 10/27/24 History Atorvastatin [Lipitor] 80 mg PO HS 10/20/22 10/27/24 History Dapagliflozin/Metformin HCl 1 tab PO DAILY 10/20/22 10/27/24 History [Xigduo Xr 5 mg-1,000 mg Tablet] Ezetimibe [Zetia] 10 mg PO DAILY 10/20/22 10/27/24 History Furosemide [Lasix] 40 mg PO DAILY 10/20/22 10/27/24 History Metoprolol Tartrate [Lopressor] 25 mg PO BID 10/20/22 10/27/24 History Potassium Chloride ER [K-Dur 20] 20 meq PO HS 10/20/22 10/27/24 History Apixaban [Eliquis] 5 mg PO BID 10/27/24 10/27/24 History Losartan/Hydrochlorothiazide 1 tab PO DAILY 10/27/24 10/27/24 History [Hyzaar 100-25 Tablet] Semaglutide [Ozempic] 1 mg SQ WE 10/27/24 10/27/24 History glipiZIDE XL [Glucotrol XL] 2.5 mg PO HS 10/27/24 10/27/24 History Allergies Allergy/AdvReac Type Severity Reaction Status Date / Time Sulfa (Sulfonamide Allergy Rash/Hives Verified 10/27/24 07:32 Antibiotics) nickel sulfate Allergy hives Uncoded 10/27/24 07:32 Physical Exam Vitals: Vital Signs Temp Pulse Pulse Resp BP BP Pulse Ox 10/27/24 08:18 98.5 F 80 17 139/69 96 10/27/24 07:55 98.3 F 80 18 141/67 97 10/27/24 07:00 49 L 10 L 127/66 100 10/27/24 04:00 77 15 113/89 100 10/27/24 03:00 77 10 L 105/66 100 10/27/24 01:02 79 17 168/77 97 10/26/24 23:58 98.0 F 93 14 119/61 99 Intake and Output 10/26/24 10/27/24 10/27/24 22:59 06:59 14:59 Other: Voiding Method Toilet Urinal # Voids 1 Weight 103.873 kg 103.873 kg Patient is awake, comfortable, no acute distress Alert oriented x 3 Examination of the heart S1 and S2 Examination of the lungs bilateral breath sounds are heard Abdomen is soft nontender Examination of lower extremity shows no significant edema COIL TAPER exam grossly intact Results - Lab Results Most recent lab results Calcium 18.9 mg/dL (8.4-10.2) H* 10/27/24 02:17 Magnesium 1.5 mg/dL (1.6-2.3) L 10/27/24 01:19 10/27/24 00:10 10/27/24 02:17 Assessment and Plan Assessment: 1. Acute kidney injury associated with hypovolemia and hypercalcemia. Nonoliguric. Previous calcium 1.2 on 10/21/2024. Check UA 2. Hypercalcemia associated with excessive intake of calcium with Tums along with acute kidney injury and hypovolemia. Obtain basic workup for hypercalcemia. Continue with IV hydration. Hold thiazide diuretics 3. Hypokalemia secondary to diuretics 4. Hypovolemic hyponatremia. Continue with normal saline. If serum sodium drops further patient may have an underlying component of SIADH from severe nausea. Check urine osmolality and urine sodium 5. Type 2 diabetes maintained on metformin, Farxiga, Glucotrol Plan: Continue with normal saline Check 25-hydroxy vitamin D and one 25-hydroxy vitamin D levels along with RUBÉN level and serum and urine immunofixation Patient is advised to avoid Tums Continue to hold thiazide diuretics Check UA Check urine osmolality and random urine sodium Check ultrasound of the kidneys Repeat labs in a.m. Thank you for the consultation. Will continue to follow the patient with you during his hospitalization
--- NOTE | 2024-10-27 12:06 | P.HPIM ---
History of Present Illness 69-year-old male came in with complaints of syncopal episode. Patient also having nausea vomiting and he passed out. Patient is found to have acute renal failure with creatinine going up to around 2.5, severe hypercalcemia with calcium going up to 16. Upon further questioning patient has been using Tums quite a bit recently for his stomach upset. Patient is also on diuretics Lasix losartan, hydrochlorothiazide and metformin as well. Patient denied any weight loss denied any history of cancer. REVIEW OF SYSTEMS: All other systems are negative except those mentioned in the HPI PHYSICAL EXAMINATION: GENERAL: The patient is alert and oriented x3, not in any acute distress. Well developed, well nourished. HEENT: Pupils are round and equally reacting to light. EOMI. No scleral icterus. No conjunctival pallor. Normocephalic, atraumatic. No pharyngeal erythema. No thyromegaly. CARDIOVASCULAR: S1 and S2 present. No murmurs, rubs, or gallops. PULMONARY: Chest is clear to auscultation, no wheezing or crackles. ABDOMEN: Soft, nontender, nondistended, normoactive bowel sounds. No palpable organomegaly. MUSCULOSKELETAL: No joint swelling or deformity. EXTREMITIES: No cyanosis, clubbing, or pedal edema. NEUROLOGICAL: Gross neurological examination did not reveal any focal deficits. SKIN: No rashes. Assessment and plan -Syncope secondary to intra severe intravascular volume depletion diuretics will be held losartan will be held. - Severe hypercalcemia secondary to Tums intake patient will be started on IV fluids elucidation of zoledronic acid to nephrology. Will obtain a PTH vitamin D levels. Urine and serum immunofixation test as per nephrology - Acute renal failure secondary to hypercalcemia: IV fluids at 130 cc/h close monitoring of electrolytes. Hold off on Lasix, lisinopril, hydrochlorothiazide, metformin - Atrial fibrillation paroxysmal on Eliquis which was resumed - Type 2 diabetes mellitus patient will be on sliding scale insulin hold off on oral all oral hypoglycemic agents DVT prophylaxis: Subcutaneous heparin Past Medical History Past Medical History: Atrial Fibrillation, Cancer, Diabetes Mellitus, GERD/Reflux, Hyperlipidemia, Hypertension, Osteoarthritis (OA), Vascular Disorder Additional Past Medical History / Comment(s): skin cancer, DDD, past hx. a-fib-had ablation, just had a tooth pulled History of Any Multi-Drug Resistant Organisms: None Reported Past Surgical History: Cardiac Ablation Additional Past Surgical History / Comment(s): stent placement to open circulation to right leg Past Anesthesia/Blood Transfusion Reactions: No Reported Reaction Past Psychological History: No Psychological Hx Reported Smoking Status: Former smoker Past Alcohol Use History: Heavy Additional Past Alcohol Use History / Comment(s): quit smoking 2007, smoked 30 yrs. 1ppd, drinks around 14 drinks per week or a little less Past Drug Use History: None Reported - Past Family History Mother Family Medical History: Deep Vein Thrombosis (DVT) Father Family Medical History: Deep Vein Thrombosis (DVT) Sister(s) Family Medical History: Deep Vein Thrombosis (DVT) Medications and Allergies Home Medications Medication Instructions Recorded Confirmed Type Aspirin 81 mg PO DAILY 10/20/22 10/27/24 History Atorvastatin [Lipitor] 80 mg PO HS 10/20/22 10/27/24 History Dapagliflozin/Metformin HCl 1 tab PO DAILY 10/20/22 10/27/24 History [Xigduo Xr 5 mg-1,000 mg Tablet] Ezetimibe [Zetia] 10 mg PO DAILY 10/20/22 10/27/24 History Furosemide [Lasix] 40 mg PO DAILY 10/20/22 10/27/24 History Metoprolol Tartrate [Lopressor] 25 mg PO BID 10/20/22 10/27/24 History Potassium Chloride ER [K-Dur 20] 20 meq PO HS 10/20/22 10/27/24 History Apixaban [Eliquis] 5 mg PO BID 10/27/24 10/27/24 History Losartan/Hydrochlorothiazide 1 tab PO DAILY 10/27/24 10/27/24 History [Hyzaar 100-25 Tablet] Semaglutide [Ozempic] 1 mg SQ WE 10/27/24 10/27/24 History glipiZIDE XL [Glucotrol XL] 2.5 mg PO HS 10/27/24 10/27/24 History Allergies Allergy/AdvReac Type Severity Reaction Status Date / Time Sulfa (Sulfonamide Allergy Rash/Hives Verified 10/27/24 07:32 Antibiotics) nickel sulfate Allergy hives Uncoded 10/27/24 07:32 Physical Exam Vitals: Vital Signs Temp Pulse Pulse Resp BP BP Pulse Ox 10/27/24 08:18 98.5 F 80 17 139/69 96 10/27/24 07:55 98.3 F 80 18 141/67 97 10/27/24 07:00 49 L 10 L 127/66 100 10/27/24 04:00 77 15 113/89 100 10/27/24 03:00 77 10 L 105/66 100 10/27/24 01:02 79 17 168/77 97 10/26/24 23:58 98.0 F 93 14 119/61 99 Intake and Output 10/26/24 10/27/24 10/27/24 22:59 06:59 14:59 Other: Voiding Method Toilet Urinal # Voids 1 Weight 103.873 kg 103.873 kg Results CBC & Chem 7: 10/27/24 00:10 10/27/24 02:17 Labs: Abnormal Lab Results - Last 24 Hours (Table) 10/27/24 10/27/24 10/27/24 Range/Units 00:10 00:10 01:19 WBC 11.14 H (4.50-10.00) 10*3/uL RBC 4.39 L (4.40-5.60) 10*6/uL MCH 33.0 H (27.0-32.0) pg APTT 19.1 L (22.0-30.0) sec Sodium 130 L (137-145) mmol/L Potassium 3.0 L (3.5-5.1) mmol/L Chloride 88 L (98-107) mmol/L Carbon Dioxide 33 H (22-30) mmol/L BUN 26 H (9-20) mg/dL Creatinine 2.32 H (0.66-1.25) mg/dL Glucose 132 H (74-99) mg/dL Calcium 17.8 H* (8.4-10.2) mg/dL Magnesium 1.5 L (1.6-2.3) mg/dL Total Bilirubin 1.9 H (0.2-1.3) mg/dL AST 89 H (17-59) U/L ALT 59 H (4-49) U/L Troponin I (0.000-0.034) ng/mL 10/27/24 10/27/24 10/27/24 Range/Units 01:19 02:17 02:17 WBC (4.50-10.00) 10*3/uL RBC (4.40-5.60) 10*6/uL MCH (27.0-32.0) pg APTT (22.0-30.0) sec Sodium 128 L (137-145) mmol/L Potassium (3.5-5.1) mmol/L Chloride 87 L (98-107) mmol/L Carbon Dioxide 34 H (22-30) mmol/L BUN 28 H (9-20) mg/dL Creatinine 2.20 H (0.66-1.25) mg/dL Glucose 105 H (74-99) mg/dL Calcium 18.9 H* (8.4-10.2) mg/dL Magnesium (1.6-2.3) mg/dL Total Bilirubin 2.3 H (0.2-1.3) mg/dL AST 95 H (17-59) U/L ALT 63 H (4-49) U/L Troponin I 0.133 H* 0.133 H* (0.000-0.034) ng/mL 10/27/24 10/27/24 Range/Units 06:30 09:48 WBC (4.50-10.00) 10*3/uL RBC (4.40-5.60) 10*6/uL MCH (27.0-32.0) pg APTT (22.0-30.0) sec Sodium (137-145) mmol/L Potassium (3.5-5.1) mmol/L Chloride (98-107) mmol/L Carbon Dioxide (22-30) mmol/L BUN (9-20) mg/dL Creatinine (0.66-1.25) mg/dL Glucose (74-99) mg/dL Calcium (8.4-10.2) mg/dL Magnesium (1.6-2.3) mg/dL Total Bilirubin (0.2-1.3) mg/dL AST (17-59) U/L ALT (4-49) U/L Troponin I 0.160 H* 0.144 H* (0.000-0.034) ng/mL
[2024-10-27] MEDS: FAMOTIDINE 20 MG TAB PO SCH ×2 (12:18→12:26)
[2024-10-27 12:34] LABS: Glucose,Whole Blood 86 mg/dL (70-110)
[2024-10-27] MEDS: INSULIN LISPRO (HumaLOG) 100 UNIT/ML 10 mL VL SQ SCH (12:41)
--- NOTE | 2024-10-27 13:12 | US ---
EXAMINATION TYPE: US kidneys/renal and bladder DATE OF EXAM: 10/27/2024 COMPARISON: NONE CLINICAL INDICATION: Male, 69 years old with history of SLADE; Hx HTN, Abnormal lab values, constipatio n, and urinary frequency. TECHNIQUE: Grayscale imaging of the bilateral kidneys and urinary bladder: FINDINGS: EXAM MEASUREMENTS: Right Kidney: 12.4 x 7.2 x 6.0 cm Left Kidney: 12.0 x 7.1 x 5.4 cm Incidental echogenic and attenuating appearance to the liver. Right Kidney: wnl, no evidence for hydronephrosis, mass or renal calculus. Left Kidney: wnl, no evidence for hydronephrosis, mass or renal calculus. Bladder: Partially distended bladder shows no gross abnormality. Bilateral Jets seen: Yes IMPRESSION: 1. No hydronephrosis. 2. Incidentally, suspect underlying hepatic steatosis. Correlate with LFTs, lipid profile, and patien t risk factors. [facility], , 10/27/2024 1:10 PM
[2024-10-27] MEDS ORDERED: HEPARIN SODIUM,PORCINE 5,000 UNIT/ML 1 ML VIAL SQ SCH (16:00)
[2024-10-27] MEDS ORDERED: METOPROLOL TARTRATE 25 MG TAB PO SCH (16:00)
--- NOTE | 2024-10-27 16:46 | CA ---
Transthoracic Echo Report Name: Dipak Thomas Age: 69 Gender: M : 1955 Exam Date: 10/27/2024 10:37 Exam Location: [facility] Ht (in): 68 Wt (lb): 229 Ordering Physician: Shea Lundy Attending/Referring Phys: [id number], [place] Adviser Jovanna Barroso RDCS Procedure CPT: Indications: elevated trop Cardiac Hx: Technical Quality: Technically difficult study Contrast 1: Definity Total Dose (mL): 5 Contrast 2: Total Dose (mL): MEASUREMENTS (Male / Female) Normal Values 2D ECHO LV Diastolic Diameter PLAX 4.3 cm 4.2 - 5.9 / 3.9 - 5.3 cm LV Systolic Diameter PLAX 2.7 cm IVS Diastolic Thickness 0.9 cm 0.6 - 1.0 / 0.6 - 0.9 cm LVPW Diastolic Thickness 1.7 cm 0.6 - 1.0 / 0.6 - 0.9 cm LV Relative Wall Thickness 0.6 LVOT Diameter 2.1 cm LV Diastolic Volume MOD BP 82.9 cm??? 67 - 155 / 56 - 104 cm??? LV Systolic Volume MOD BP 28.4 cm??? 22 - 58 / 19 - 49 cm??? LV Ejection Fraction MOD BP 65.8 % >= 55 % LV Cardiac Index MOD BP 1441.7 cm???/min???m??? LV Diastolic Volume MOD 4C 91.0 cm??? LV Systolic Volume MOD 4C 29.5 cm??? LV Ejection Fraction MOD 4C 67.5 % LV Cardiac Index MOD 4C 1623.1 cm???/min???m??? LV Diastolic Length 4C 7.7 cm LV Systolic Length 4C 6.1 cm LV Diastolic Volume MOD 2C 73.9 cm??? LV Systolic Volume MOD 2C 28.0 cm??? LV Ejection Fraction MOD 2C 62.1 % LV Cardiac Index MOD 2C 1212.0 cm???/min???m??? LV Diastolic Length 2C 7.5 cm LV Systolic Length 2C 6.1 cm LA Volume 68.9 cm??? 18 - 58 / 22 - 52 cm??? LA Volume Index 30.3 cm???/m??? 16 - 28 cm???/m??? DOPPLER AV Peak Velocity 130.3 cm/s AV Peak Gradient 6.8 mmHg AV Mean Velocity 88.2 cm/s AV Mean Gradient 3.4 mmHg AV Velocity Time Integral 21.4 cm LVOT Peak Velocity 137.9 cm/s LVOT Peak Gradient 7.6 mmHg LVOT Velocity Time Integral 24.0 cm LVOT Stroke Volume 82.9 cm??? LVOT Stroke Volume Index 38.3 ml/m??? LVOT Cardiac Index 2190.3 cm???/min???m??? AV Area Cont Eq vti 3.9 cm??? AV Area Cont Eq pk 3.7 cm??? MV Area PHT 4.5 cm??? Mitral E Point Velocity 89.2 cm/s Mitral A Point Velocity 37.6 cm/s Mitral E to A Ratio 2.4 MV Deceleration Time 167.9 ms PV Peak Velocity 124.1 cm/s PV Peak Gradient 6.2 mmHg FINDINGS Left Ventricle Left ventricular ejection fraction is estimated at 55-60 %. Left ventricular cavity size normal. Left ventricular wall thickness normal. No obvious regional wall motion abnormalities. Right Ventricle Right ventricle not well visualized. Normal right ventricular global systolic function. Unable to estimate the right ventricular systolic pressure. Right Atrium Normal right atrial size. Left Atrium Mildly increased left atrial volume. Mildly increased left atrial area. Mitral Valve Structurally normal mitral valve. Mitral annular calcification. No evidence for mitral valve prolapse. No mitral stenosis. Mild mitral regurgitation. Aortic Valve Trileaflet aortic valve. Aortic valve sclerosis. No aortic stenosis. No aortic regurgitation. Tricuspid Valve Structurally normal tricuspid valve. No tricuspid stenosis. Mild tricuspid regurgitation. Pulmonic Valve Pulmonic valve not well visualized. No pulmonic stenosis. no pulmonic regurgitation. Pericardium No pericardial effusion. Aorta Normal size aortic root and proximal ascending aorta. CONCLUSIONS Normal LV size and systolic function. There is mild mitral annular calcification and aortic sclerosis without restriction. Mild left atrial enlargement. Mild mitral and tricuspid regurgitation. Suboptimal Doppler study. Echo contrast was used. Right-sided pressures are not well quantified. No pericardial effusion Previewed by: Dr. Barrera Velasco MD (Electronically Signed) Final Date: 27 Oct 2024 16:45
[2024-10-27 17:17] LABS: Glucose,Whole Blood 116 mg/dL (70-110)
[2024-10-27 20:25] LABS: Glucose,Whole Blood 163 mg/dL (70-110)
[2024-10-27] MEDS: ATORVASTATIN 80 MG TAB PO SCH (20:38)
[2024-10-27] MEDS: METOPROLOL TARTRATE 12.5 MG TAB PO SCH (20:38)
[2024-10-28 05:52] LABS: Glucose,Whole Blood 130 mg/dL (70-110)
[2024-10-28] MEDS: EZETIMIBE 10 MG TAB PO SCH (07:56)
[2024-10-28 09:36] LABS: BUN/Creat Ratio 13.77 Ratio (12.00-20.00); Blood Urea Nitrogen 30.3 mg/dL (9.0-27.0); Calcium 13.8 mg/dL (8.7-10.3); Carbon Dioxide 26.6 mmol/L (21.6-31.8); Chloride 95 mmol/L (96-109); Glucose 107 mg/dL (70-110); Potassium 2.7 mmol/L (3.5-5.5); Sodium 132 mmol/L (135-145)
[2024-10-28] MEDS: POTASSIUM CHLORIDE ER 20 MEQ TAB.ER PO SCH (10:07)
--- NOTE | 2024-10-28 10:58 | P.PN ---
Subjective HISTORY OF PRESENTING ILLNESS This is a pleasant 69-year-old male past medical history significant for peripheral vascular disease status post prior angioplasty of the right iliac, paroxysmal atrial fibrillation status post ablation in [place], hypertension, dyslipidemia and diabetes mellitus. He follows in the office with Dr. Woo. We have been asked to see in consultation for syncope. He states yesterday he was struggling with nausea vomiting and while vomiting he passed out. He denies any precipitating symptoms of chest pain, shortness of breath or palpitations. EKG reveals atrial fibrillation heart rate of 94. Laboratory data reviewed, WBC 11, hemoglobin 14.5, platelets 229, D-dimer 0.32, sodium 128, potassium 3.6, creatinine 2.2, calcium 18.9, troponin 0.133, 0.133 and 0.160. Most recent echocardiogram in the office September 2022 revealed preserved LV systolic function with ejection fraction 55%, mild aortic regurgitation and dilated aorta at 3.6 cm. Most recent stress test in the office August 2022 was negative for reversible ischemia. Current daily cardiac medications include aspirin 81 mg daily, Eliquis 5 mg twice daily, losartan/hydrochlorothiazide 100/25 mg daily, metoprolol tartrate 25 mg twice daily, Lasix 40 mg daily, Zetia 10 mg daily, Lipitor 80 mg at bedtime and daily potassium supplementation. T elemetry tracings indicate atrial fibrillation with controlled ventricular rate. 10/28/2024 Patient seen and examined sitting in bed eating breakfast. Echocardiogram obtained revealed preserved LV systolic function and ejection fraction 55 to 60%, mild MR and TR RVSP unable to be estimated. Blood pressure 114/64 heart rate 73 maintaining oxygen saturation on room air afebrile. Review of telemetry indicates he is converted to sinus rhythm. Nephrology team is also following and they believe his hypercalcemia is due to excessive Tums use at home. PHYSICAL EXAMINATION Blood pressure 139/69 heart rate 80 afebrile and maintaining oxygen saturation on room air. CONSTITUTIONAL: No apparent distress. HEENT: Head is normocephalic. Pupils are equal, round. Sclerae anicteric. Mucous membranes of the mouth are moist. No JVD. No carotid bruit. CHEST EXAMINATION: Lungs are clear to auscultation. No chest wall tenderness is noted on palpation or with deep breathing. HEART EXAMINATION: Regular rate and rhythm. S1, S2 heard. No murmurs, gallops or rub. ABDOMEN: Soft, nontender. EXTREMITIES: 2+ peripheral pulses, no lower extremity edema and no calf tenderness. NEUROLOGIC EXAMINATION: Patient is awake, alert and oriented x3. ASSESSMENT Syncope, likely vasovagal secondary to vomiting Dehydration Hypercalcemia Atrial fibrillation, paroxysmal maintained on Eliquis. Currently in A-fib since admission with controlled ventricular rates. Elevated troponin, flat not likely related to myocardial injury secondary to SLADE Acute kidney injury PLAN Stable from a cardiac perspective for discharge. Follow up with Dr. Woo upon discharge. Nurse Practitioner note has been reviewed, I agree with a documented findings and plan of care. Patient was seen and examined. Objective - Vital Signs Vital signs: Vital Signs Temp 98.0 F 10/28/24 07:35 Pulse 73 10/28/24 07:35 Resp 16 10/28/24 07:35 BP 114/64 10/28/24 07:35 Pulse Ox 92 L 10/28/24 07:35 FiO2 Intake & Output 10/27/24 10/28/24 10/28/24 18:59 06:59 18:59 Intake Total 118 Balance 118 Weight 103.873 kg Intake: Oral 118 Other: Voiding Method Toilet Toilet Urinal Urinal # Voids 2 3 - Labs CBC & Chem 7: 10/27/24 00:10 10/28/24 04:37 Labs: Abnormal Lab Results - Last 24 Hours (Table) 10/27/24 10/27/24 10/27/24 Range/Units 08:50 08:55 16:57 Sodium 129 L (137-145) mmol/L Potassium (3.5-5.5) mmol/L Chloride (96-109) mmol/L BUN (9.0-27.0) mg/dL Creatinine (0.6-1.5) mg/dL Est GFR (CKD-EPI) (>=60) POC Glucose (mg/dL) (70-110) mg/dL Hemoglobin A1c (<=6.0) % Calcium (8.7-10.3) mg/dL Urine Osmolality 314 L (400-1100) mOsm/kg Ur Random Sodium 31 L (40-220) mmol/L 10/27/24 10/27/24 10/28/24 Range/Units 17:16 20:24 04:37 Sodium (137-145) mmol/L Potassium (3.5-5.5) mmol/L Chloride (96-109) mmol/L BUN (9.0-27.0) mg/dL Creatinine (0.6-1.5) mg/dL Est GFR (CKD-EPI) (>=60) POC Glucose (mg/dL) 116 H 163 H (70-110) mg/dL Hemoglobin A1c 6.4 H (<=6.0) % Calcium (8.7-10.3) mg/dL Urine Osmolality (400-1100) mOsm/kg Ur Random Sodium (40-220) mmol/L 10/28/24 10/28/24 Range/Units 04:37 05:50 Sodium 132 L (137-145) mmol/L Potassium 2.7 A* (3.5-5.5) mmol/L Chloride 95 L (96-109) mmol/L BUN 30.3 H (9.0-27.0) mg/dL Creatinine 2.2 H (0.6-1.5) mg/dL Est GFR (CKD-EPI) 32 L (>=60) POC Glucose (mg/dL) 130 H (70-110) mg/dL Hemoglobin A1c (<=6.0) % Calcium 13.8 A* (8.7-10.3) mg/dL Urine Osmolality (400-1100) mOsm/kg Ur Random Sodium (40-220) mmol/L
[2024-10-28 12:25] LABS: Glucose,Whole Blood 125 mg/dL (70-110)
--- NOTE | 2024-10-28 13:36 | P.PN ---
Subjective Patient is seen for follow-up for acute kidney injury and hypercalcemia. Serum calcium decreased to 13.8. Serum creatinine remains elevated at 2.2. Potassium was low at 2.7 today. No significant complaints today. Objective - Vital Signs Vital signs: Vital Signs Temp 98.0 F 10/28/24 07:35 Pulse 73 10/28/24 07:35 Resp 16 10/28/24 07:35 BP 114/64 10/28/24 07:35 Pulse Ox 92 L 10/28/24 07:35 FiO2 Intake & Output 10/27/24 10/28/24 10/28/24 18:59 06:59 18:59 Intake Total 118 Balance 118 Weight 103.873 kg Intake: Oral 118 Other: Voiding Method Toilet Toilet Urinal Urinal # Voids 2 3 - Exam Patient is awake, comfortable, no acute distress Alert oriented x 3 Examination of the heart S1 and S2 Examination of the lungs bilateral breath sounds are heard Abdomen is soft nontender Examination of lower extremity shows no significant edema 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 - Labs CBC & Chem 7: 10/27/24 00:10 10/28/24 04:37 Labs: Abnormal Lab Results - Last 24 Hours (Table) 10/27/24 10/27/24 10/27/24 Range/Units 08:50 08:55 16:57 Sodium 129 L (137-145) mmol/L Potassium (3.5-5.5) mmol/L Chloride (96-109) mmol/L BUN (9.0-27.0) mg/dL Creatinine (0.6-1.5) mg/dL Est GFR (CKD-EPI) (>=60) POC Glucose (mg/dL) (70-110) mg/dL Hemoglobin A1c (<=6.0) % Calcium (8.7-10.3) mg/dL Vit D 1,25-Dihydroxy (19.9-79.3) pg/mL Urine Osmolality 314 L (400-1100) mOsm/kg Ur Random Sodium 31 L (40-220) mmol/L 10/27/24 10/27/24 10/27/24 Range/Units 16:57 17:16 20:24 Sodium (137-145) mmol/L Potassium (3.5-5.5) mmol/L Chloride (96-109) mmol/L BUN (9.0-27.0) mg/dL Creatinine (0.6-1.5) mg/dL Est GFR (CKD-EPI) (>=60) POC Glucose (mg/dL) 116 H 163 H (70-110) mg/dL Hemoglobin A1c (<=6.0) % Calcium (8.7-10.3) mg/dL Vit D 1,25-Dihydroxy 7.6 L (19.9-79.3) pg/mL Urine Osmolality (400-1100) mOsm/kg Ur Random Sodium (40-220) mmol/L 10/28/24 10/28/24 10/28/24 Range/Units 04:37 04:37 05:50 Sodium 132 L (137-145) mmol/L Potassium 2.7 A* (3.5-5.5) mmol/L Chloride 95 L (96-109) mmol/L BUN 30.3 H (9.0-27.0) mg/dL Creatinine 2.2 H (0.6-1.5) mg/dL Est GFR (CKD-EPI) 32 L (>=60) POC Glucose (mg/dL) 130 H (70-110) mg/dL Hemoglobin A1c 6.4 H (<=6.0) % Calcium 13.8 A* (8.7-10.3) mg/dL Vit D 1,25-Dihydroxy (19.9-79.3) pg/mL Urine Osmolality (400-1100) mOsm/kg Ur Random Sodium (40-220) mmol/L 10/28/24 Range/Units 12:24 Sodium (137-145) mmol/L Potassium (3.5-5.5) mmol/L Chloride (96-109) mmol/L BUN (9.0-27.0) mg/dL Creatinine (0.6-1.5) mg/dL Est GFR (CKD-EPI) (>=60) POC Glucose (mg/dL) 125 H (70-110) mg/dL Hemoglobin A1c (<=6.0) % Calcium (8.7-10.3) mg/dL Vit D 1,25-Dihydroxy (19.9-79.3) pg/mL Urine Osmolality (400-1100) mOsm/kg Ur Random Sodium (40-220) mmol/L Assessment and Plan Assessment: 1. Acute kidney injury associated with hypovolemia and hypercalcemia. Nonoliguric. Previous creatinine 1.2 on 10/21/2024. Check UA 2. Hypercalcemia associated with excessive intake of calcium with Tums along with acute kidney injury and hypovolemia. 25-hydroxy vitamin D is 46.9, PTH is appropriately low at 14.4 and 1, 25 hydroxy vitamin D is low at 7.6, maintained on IV hydration. Thiazide diuretics on hold 3. Hypokalemia secondary to diuretics 4. Hypovolemic hyponatremia. Continue with normal saline. 5. Type 2 diabetes maintained on metformin, Farxiga, Glucotrol Plan: Continue with normal saline Check 25-hydroxy vitamin D and one 25-hydroxy vitamin D levels along with RUBÉN level and serum and urine immunofixation Continue to hold thiazide diuretics Replace potassium Patient can be discharged tomorrow. Continue with IV fluids in the meantime
[2024-10-28] MEDS ORDERED: Magnesium Replacement Protocol 1 EACH MISC MISCELLANE PRN (14:05)
[2024-10-28] MEDS ORDERED: Potassium Replacement Protocol 1 EACH MISC MISCELLANE PRN (14:05)
[2024-10-28] MEDS: 0.9% NACL WITH KCL 20 MEQ/L 1,000 ML IV SCH (14:50)
[2024-10-28] MEDS: IOPAMIDOL CONTRAST (ORAL USE) VIAL PO PRN (15:29)
[2024-10-28 17:20] LABS: Glucose,Whole Blood 137 mg/dL (70-110)
--- NOTE | 2024-10-28 17:30 | CT ---
EXAMINATION TYPE: CT ChestAbdPelvis wo con CT DLP: 1541.8 mGycm, Automated exposure control for dose reduction was used. DATE OF EXAM: 10/28/2024 5:13 PM COMPARISON: Renal ultrasound 10/27/2024 CLINICAL INDICATION:Male, 69 years old with history of hypercalcemia; PHH, Hypercalcemia. Technique: Multiple axial images of the chest, abdomen, and pelvis were obtained without the administ ration of intravenous contrast. Oral contrast was administered. Two-dimensional coronal and sagittal reconstructions were obtained. Findings: Limited examination due to lack of intravenous contrast. CHEST: LUNGS/ PLEURA: No pleural effusion, pneumothorax, or focal consolidation. No suspicious pulmonary nod ule or mass. AIRWAY: Patent and unremarkable.. HEART: Size within normal limits. . No pericardial effusion. Mild coronary artery calcifications pres ent. Mitral annulus calcifications. MEDIASTINUM: No gross evidence of adenopathy. VASCULATURE: No aortic aneurysm. Mild atherosclerotic calcification of the aorta and its branches. 4 vessel aortic arch. MUSCULOSKELETAL: No acute osseous abnormalities. No aggressive osseous lesion. SOFT TISSUES/LYMPH NODES: Bilateral gynecomastia. LOWER NECK: No significant findings. ABDOMEN: ABDOMEN LIVER: Diffusely hypoattenuating parenchyma. GALLBLADDER AND BILE DUCTS: Unremarkable noncontrast appearance PANCREAS: Unremarkable noncontrast appearance SPLEEN: Unremarkable noncontrast appearance ADRENAL GLANDS: Unremarkable noncontrast appearance. KIDNEYS AND URETERS: No evidence of hydronephrosis or renal calculus. Nonspecific bilateral perinephr ic fat stranding. PELVIS BLADDER: Unremarkable noncontrast appearance REPRODUCTIVE: Unremarkable noncontrast appearance ABDOMEN & PELVIS-motion artifact limits evaluation of the abdomen. STOMACH AND BOWEL: Stomach and duodenum are unremarkable. Enteric contrast reaches the mid transverse colon. No focal bowel wall thickening or surrounding inflammatory changes. No evidence of bowel obst ruction. PERITONEUM: No evidence of pneumoperitoneum or free fluid. VASCULATURE: Moderate atherosclerotic calcifications are present throughout the abdominal aorta and i ts branches. No abdominal aortic aneurysm. There is a vascular stent identified within the right comm on iliac artery. MUSCULOSKELETAL: No acute osseous abnormalities. Multilevel degenerative disc disease of the lumbar s pine. No aggressive osseous lesion. LYMPH NODES: No gross evidence for lymphadenopathy. SOFT TISSUE/ABDOMINAL WALL: Unremarkable IMPRESSION: 1. No CT evidence for acute process within the chest, abdomen or pelvis within limitations of a abiel ntravenous contrast exam. 2. Hepatic steatosis. [facility], , 10/28/2024 5:27 PM
[2024-10-28 17:34] LABS: Appearance,Urine Clear (Clear); Bilirubin,Urine Negative (Negative); Blood,Urine Negative (Negative); Color,Urine Colorless; Glucose,Urine (UA) 3+ (Negative); Ketones,Urine Negative (Negative); Leukocyte Esterase,Urine Negative (Negative); Nitrite,Urine Negative (Negative); Protein,Urine Negative (Negative); Specific Gravity,Urine 1.004 (1.001-1.035); Urobilinogen,Urine <2.0 mg/dL (<2.0)
[2024-10-28 18:28] LABS: Basophils # (A) 0.05 10*3/uL (0.00-0.10); Basophils % (A) 0.7 %; Eosinophils # (A) 1.04 10*3/uL (0.04-0.35); Eosinophils % (A) 13.6 %; HCT 33.8 % (39.6-50.0); HGB 11.6 g/dL (13.0-17.0); Lymphocytes # (A) 1.91 10*3/uL (0.90-5.00); Lymphocytes % (A) 25.1 %; MCHC 34.3 g/dL (32.0-37.0); Mean Platelet Volume 10.1 fL (9.5-12.2); Monocytes # (A) 0.82 10*3/uL (0.20-1.00); Monocytes % (A) 10.8 %; Neutrophils # (A) 3.77 10*3/uL (1.80-7.70); Neutrophils % (A) 49.4 %; Platelet Count 165 10*3/uL (140-440); RBC 3.51 10*6/uL (4.40-5.60); RDW 14.7 % (11.5-14.5); WBC 7.62 10*3/uL (4.50-10.00)
[2024-10-28 18:30] LABS: MCV 96.3 fL (80.0-97.0)
[2024-10-28 18:33] LABS: ALT 53 U/L (4-49); AST 82 U/L (17-59); African American GFR (CKD) 40 (>60 ml/min/1.73 sqM); Albumin 3.4 g/dL (3.5-5.0); Albumin/Globulin Ratio 1.4; Alkaline Phosphatase 50 U/L (38-126); Anion Gap 7 mmol/L; Blood Urea Nitrogen 32 mg/dL (9-20); Carbon Dioxide 25 mmol/L (22-30); Chloride 98 mmol/L (98-107); Globulin 2.4 g/dL; Glucose 123 mg/dL (74-99); Non-African American GFR(CKD) 34 (>60 ml/min/1.73 sqM); Potassium 3.6 mmol/L (3.5-5.1); Sodium 130 mmol/L (137-145); Total Bilirubin 1.1 mg/dL (0.2-1.3); Total Protein 5.8 g/dL (6.3-8.2)
[2024-10-28 18:45] LABS: Calcium 13.5 mg/dL (8.4-10.2)
[2024-10-28 19:47] LABS: Glucose,Whole Blood 146 mg/dL (70-110)
[2024-10-29 06:13] LABS: Glucose,Whole Blood 124 mg/dL (70-110)
[2024-10-29 07:37] VITALS: BP 123/71; RESP 14; TEMP 98.3
[2024-10-29 08:39] VITALS: PULSE 61
[2024-10-29] MEDS ORDERED: Magnesium Replacement Protocol 1 EACH MISC MISCELLANE PRN (08:50)
[2024-10-29] MEDS: MAGNESIUM SULFATE-D5W PMX 1 GM in DEXTROSE/WATER 1 100ML.BAG IVPB SCH (09:18)
[2024-10-29 10:47] LABS: Basophils # (A) 0.06 10*3/uL (0.00-0.10); Basophils % (A) 0.7 %; Eosinophils # (A) 1.04 10*3/uL (0.04-0.35); Eosinophils % (A) 11.8 %; HCT 31.5 % (39.6-50.0); HGB 10.8 g/dL (13.0-17.0); Lymphocytes # (A) 2.16 10*3/uL (0.90-5.00); Lymphocytes % (A) 24.5 %; MCH 33.2 pg (27.0-32.0); MCHC 34.3 g/dL (32.0-37.0); MCV 96.9 fL (80.0-97.0); Mean Platelet Volume 10.7 fL (9.5-12.2); Monocytes # (A) 0.76 10*3/uL (0.20-1.00); Monocytes % (A) 8.6 %; Neutrophils # (A) 4.78 10*3/uL (1.80-7.70); Neutrophils % (A) 54.2 %; Platelet Count 162 10*3/uL (140-440); RBC 3.25 10*6/uL (4.40-5.60); WBC 8.82 10*3/uL (4.50-10.00)
[2024-10-29 10:57] LABS: ALT 47 U/L (4-49); AST 63 U/L (17-59); African American GFR (CKD) 40 (>60 ml/min/1.73 sqM); Albumin 2.9 g/dL (3.5-5.0); Albumin/Globulin Ratio 1.3; Alkaline Phosphatase 48 U/L (38-126); Anion Gap 6 mmol/L; Blood Urea Nitrogen 28 mg/dL (9-20); Carbon Dioxide 25 mmol/L (22-30); Chloride 102 mmol/L (98-107); Globulin 2.3 g/dL; Glucose 115 mg/dL (74-99); Non-African American GFR(CKD) 34 (>60 ml/min/1.73 sqM); Potassium 3.7 mmol/L (3.5-5.1); Sodium 133 mmol/L (137-145); Total Bilirubin 0.9 mg/dL (0.2-1.3); Total Protein 5.2 g/dL (6.3-8.2)
[2024-10-29 11:12] LABS: Calcium 13.1 mg/dL (8.4-10.2)
--- NOTE | 2024-10-29 12:00 | P.PN ---
Subjective HISTORY OF PRESENTING ILLNESS This is a pleasant 69-year-old male past medical history significant for peripheral vascular disease status post prior angioplasty of the right iliac, paroxysmal atrial fibrillation status post ablation in [place], hypertension, dyslipidemia and diabetes mellitus. He follows in the office with Dr. Woo. We have been asked to see in consultation for syncope. He states yesterday he was struggling with nausea vomiting and while vomiting he passed out. He denies any precipitating symptoms of chest pain, shortness of breath or palpitations. EKG reveals atrial fibrillation heart rate of 94. Laboratory data reviewed, WBC 11, hemoglobin 14.5, platelets 229, D-dimer 0.32, sodium 128, potassium 3.6, creatinine 2.2, calcium 18.9, troponin 0.133, 0.133 and 0.160. Most recent echocardiogram in the office September 2022 revealed preserved LV systolic function with ejection fraction 55%, mild aortic regurgitation and dilated aorta at 3.6 cm. Most recent stress test in the office August 2022 was negative for reversible ischemia. Current daily cardiac medications include aspirin 81 mg daily, Eliquis 5 mg twice daily, losartan/hydrochlorothiazide 100/25 mg daily, metoprolol tartrate 25 mg twice daily, Lasix 40 mg daily, Zetia 10 mg daily, Lipitor 80 mg at bedtime and daily potassium supplementation. T elemetry tracings indicate atrial fibrillation with controlled ventricular rate. 10/28/2024 Patient seen and examined sitting in bed eating breakfast. Echocardiogram obtained revealed preserved LV systolic function and ejection fraction 55 to 60%, mild MR and TR RVSP unable to be estimated. Blood pressure 114/64 heart rate 73 maintaining oxygen saturation on room air afebrile. Review of telemetry indicates he is converted to sinus rhythm. Nephrology team is also following and they believe his hypercalcemia is due to excessive Tums use at home. 10/29/2024 Patient seen and examined resting comfortably sitting up in bed in no acute distress. He has no symptoms of chest pain, shortness of breath, dizziness or palpitations. Blood pressure 123/71 heart rate 51 afebrile maintaining oxygen saturation on room air. He continues to remain in sinus rhythm with frequent blocked PACs. Laboratory data reviewed, hemoglobin 10.8, platelets 162, sodium 133, potassium 3.7, creatinine 1.95, calcium 13.1, PHYSICAL EXAMINATION Blood pressure 139/69 heart rate 80 afebrile and maintaining oxygen saturation on room air. CONSTITUTIONAL: No apparent distress. HEENT: Head is normocephalic. Pupils are equal, round. Sclerae anicteric. Mucous membranes of the mouth are moist. No JVD. No carotid bruit. CHEST EXAMINATION: Lungs are clear to auscultation. No chest wall tenderness is noted on palpation or with deep breathing. HEART EXAMINATION: Regular rate and rhythm. S1, S2 heard. No murmurs, gallops or rub. ABDOMEN: Soft, nontender. EXTREMITIES: 2+ peripheral pulses, no lower extremity edema and no calf tenderness. NEUROLOGIC EXAMINATION: Patient is awake, alert and oriented x3. ASSESSMENT Syncope, likely vasovagal secondary to vomiting Dehydration Hypercalcemia Atrial fibrillation, paroxysmal maintained on Eliquis. Currently in A-fib since admission with controlled ventricular rates. Elevated troponin, flat not likely related to myocardial injury secondary to SLADE Acute kidney injury PLAN Stable from a cardiac perspective for discharge. Follow up with Dr. Woo upon discharge. Nurse Practitioner note has been reviewed, I agree with a documented findings and plan of care. Patient was seen and examined. Objective - Vital Signs Vital signs: Vital Signs Temp 98.3 F 10/29/24 07:15 Pulse 61 10/29/24 07:45 Resp 14 10/29/24 07:15 BP 123/71 10/29/24 07:15 Pulse Ox 97 10/29/24 07:15 FiO2 Intake & Output 10/28/24 10/29/24 10/29/24 18:59 06:59 18:59 Other: Voiding Method Toilet Toilet Toilet Urinal Urinal Urinal # Voids 2 2 # Bowel Movements 1 - Labs CBC & Chem 7: 10/29/24 04:18 10/29/24 04:18 Labs: Abnormal Lab Results - Last 24 Hours (Table) 10/28/24 10/28/24 10/28/24 Range/Units 12:24 17:15 17:19 RBC (4.40-5.60) 10*6/uL Hgb (13.0-17.0) g/dL Hct (39.6-50.0) % MCH (27.0-32.0) pg RDW (11.5-14.5) % Eosinophils # (0.04-0.35) 10*3/uL Sodium (137-145) mmol/L BUN (9-20) mg/dL Creatinine (0.66-1.25) mg/dL Glucose (74-99) mg/dL POC Glucose (mg/dL) 125 H 137 H (70-110) mg/dL Calcium (8.4-10.2) mg/dL Magnesium (1.5-2.4) mg/dL AST (17-59) U/L ALT (4-49) U/L Total Protein (6.3-8.2) g/dL Albumin (3.5-5.0) g/dL Urine Glucose (UA) 3+ H (Negative) 10/28/24 10/28/24 10/28/24 Range/Units 18:03 18:03 19:43 RBC 3.51 L (4.40-5.60) 10*6/uL Hgb 11.6 L (13.0-17.0) g/dL Hct 33.8 L (39.6-50.0) % MCH 33.0 H (27.0-32.0) pg RDW 14.7 H (11.5-14.5) % Eosinophils # 1.04 H (0.04-0.35) 10*3/uL Sodium 130 L (137-145) mmol/L BUN 32 H (9-20) mg/dL Creatinine 1.95 H (0.66-1.25) mg/dL Glucose 123 H (74-99) mg/dL POC Glucose (mg/dL) 146 H (70-110) mg/dL Calcium 13.5 H* (8.4-10.2) mg/dL Magnesium (1.5-2.4) mg/dL AST 82 H (17-59) U/L ALT 53 H (4-49) U/L Total Protein 5.8 L (6.3-8.2) g/dL Albumin 3.4 L (3.5-5.0) g/dL Urine Glucose (UA) (Negative) 10/29/24 10/29/24 10/29/24 Range/Units 04:18 04:18 04:18 RBC 3.25 L (4.40-5.60) 10*6/uL Hgb 10.8 L (13.0-17.0) g/dL Hct 31.5 L (39.6-50.0) % MCH 33.2 H (27.0-32.0) pg RDW 15.0 H (11.5-14.5) % Eosinophils # 1.04 H (0.04-0.35) 10*3/uL Sodium 133 L (137-145) mmol/L BUN 28 H (9-20) mg/dL Creatinine 1.95 H (0.66-1.25) mg/dL Glucose 115 H (74-99) mg/dL POC Glucose (mg/dL) (70-110) mg/dL Calcium 13.1 H* (8.4-10.2) mg/dL Magnesium 1.4 L (1.5-2.4) mg/dL AST 63 H (17-59) U/L ALT (4-49) U/L Total Protein 5.2 L (6.3-8.2) g/dL Albumin 2.9 L (3.5-5.0) g/dL Urine Glucose (UA) (Negative) 10/29/24 Range/Units 06:10 RBC (4.40-5.60) 10*6/uL Hgb (13.0-17.0) g/dL Hct (39.6-50.0) % MCH (27.0-32.0) pg RDW (11.5-14.5) % Eosinophils # (0.04-0.35) 10*3/uL Sodium (137-145) mmol/L BUN (9-20) mg/dL Creatinine (0.66-1.25) mg/dL Glucose (74-99) mg/dL POC Glucose (mg/dL) 124 H (70-110) mg/dL Calcium (8.4-10.2) mg/dL Magnesium (1.5-2.4) mg/dL AST (17-59) U/L ALT (4-49) U/L Total Protein (6.3-8.2) g/dL Albumin (3.5-5.0) g/dL Urine Glucose (UA) (Negative)
--- NOTE | 2024-10-29 12:11 | P.PN ---
Subjective Patient is seen for follow-up for acute kidney injury and hypercalcemia. Serum calcium decreased to 13.1. Serum creatinine decreased to 1.9, potassium is 3.7 today No significant complaints today. 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 - Labs CBC & Chem 7: 10/29/24 04:18 10/29/24 04:18 Labs: Abnormal Lab Results - Last 24 Hours (Table) 10/28/24 10/28/24 10/28/24 Range/Units 12:24 17:15 17:19 RBC (4.40-5.60) 10*6/uL Hgb (13.0-17.0) g/dL Hct (39.6-50.0) % MCH (27.0-32.0) pg RDW (11.5-14.5) % Eosinophils # (0.04-0.35) 10*3/uL Sodium (137-145) mmol/L BUN (9-20) mg/dL Creatinine (0.66-1.25) mg/dL Glucose (74-99) mg/dL POC Glucose (mg/dL) 125 H 137 H (70-110) mg/dL Calcium (8.4-10.2) mg/dL Magnesium (1.5-2.4) mg/dL AST (17-59) U/L ALT (4-49) U/L Total Protein (6.3-8.2) g/dL Albumin (3.5-5.0) g/dL Urine Glucose (UA) 3+ H (Negative) 10/28/24 10/28/24 10/28/24 Range/Units 18:03 18:03 19:43 RBC 3.51 L (4.40-5.60) 10*6/uL Hgb 11.6 L (13.0-17.0) g/dL Hct 33.8 L (39.6-50.0) % MCH 33.0 H (27.0-32.0) pg RDW 14.7 H (11.5-14.5) % Eosinophils # 1.04 H (0.04-0.35) 10*3/uL Sodium 130 L (137-145) mmol/L BUN 32 H (9-20) mg/dL Creatinine 1.95 H (0.66-1.25) mg/dL Glucose 123 H (74-99) mg/dL POC Glucose (mg/dL) 146 H (70-110) mg/dL Calcium 13.5 H* (8.4-10.2) mg/dL Magnesium (1.5-2.4) mg/dL AST 82 H (17-59) U/L ALT 53 H (4-49) U/L Total Protein 5.8 L (6.3-8.2) g/dL Albumin 3.4 L (3.5-5.0) g/dL Urine Glucose (UA) (Negative) 10/29/24 10/29/24 10/29/24 Range/Units 04:18 04:18 04:18 RBC 3.25 L (4.40-5.60) 10*6/uL Hgb 10.8 L (13.0-17.0) g/dL Hct 31.5 L (39.6-50.0) % MCH 33.2 H (27.0-32.0) pg RDW 15.0 H (11.5-14.5) % Eosinophils # 1.04 H (0.04-0.35) 10*3/uL Sodium 133 L (137-145) mmol/L BUN 28 H (9-20) mg/dL Creatinine 1.95 H (0.66-1.25) mg/dL Glucose 115 H (74-99) mg/dL POC Glucose (mg/dL) (70-110) mg/dL Calcium 13.1 H* (8.4-10.2) mg/dL Magnesium 1.4 L (1.5-2.4) mg/dL AST 63 H (17-59) U/L ALT (4-49) U/L Total Protein 5.2 L (6.3-8.2) g/dL Albumin 2.9 L (3.5-5.0) g/dL Urine Glucose (UA) (Negative) 10/29/24 Range/Units 06:10 RBC (4.40-5.60) 10*6/uL Hgb (13.0-17.0) g/dL Hct (39.6-50.0) % MCH (27.0-32.0) pg RDW (11.5-14.5) % Eosinophils # (0.04-0.35) 10*3/uL Sodium (137-145) mmol/L BUN (9-20) mg/dL Creatinine (0.66-1.25) mg/dL Glucose (74-99) mg/dL POC Glucose (mg/dL) 124 H (70-110) mg/dL Calcium (8.4-10.2) mg/dL Magnesium (1.5-2.4) mg/dL AST (17-59) U/L ALT (4-49) U/L Total Protein (6.3-8.2) g/dL Albumin (3.5-5.0) g/dL Urine Glucose (UA) (Negative) Assessment and Plan Assessment: 1. Acute kidney injury associated with hypovolemia and hypercalcemia. Nonoliguric. Previous creatinine 1.2 on 10/21/2024. UA is benign 2. Hypercalcemia associated with excessive intake of calcium with Tums along with acute kidney injury and hypovolemia. 25-hydroxy vitamin D is 46.9, PTH is appropriately low at 14.4 and 1, 25 hydroxy vitamin D is low at 7.6, maintained on IV hydration. Thiazide diuretics on hold 3. Hypokalemia secondary to diuretics 4. Hypovolemic hyponatremia. Continue with normal saline. 5. Type 2 diabetes maintained on metformin, Farxiga, Glucotrol Plan: patient can be discharged from nephrology standpoint Follow-up as outpatient in 1 to 2 weeks Replace potassium prior to discharge
[2024-10-29 12:22] LABS: Glucose,Whole Blood 163 mg/dL (70-110)
[2024-10-29] MEDS: POTASSIUM CHLORIDE ER 20 MEQ TAB.ER PO STA (12:55)
--- NOTE | 2024-10-29 13:01 | PN ---
PROGRESS NOTE DATE OF SERVICE: 10/28/2024 SUBJECTIVE: This 69-year-old gentleman was admitted with severe dehydration and severe hypercalcemia. He is being closely monitored at this time. Potassium is 2.7 at this time, however, the calcium has improved from 18.9 to 13.8. The intact PTH was reportedly normal. CAT scan of the head is normal. There is no history of chest pain or palpitations. PAST MEDICAL HISTORY: Reviewed. REVIEW OF SYSTEMS: A 14-point review of systems is negative. CURRENT MEDICATIONS: Reviewed. PHYSICAL EXAMINATION: VITAL SIGNS: Pulse is 73, blood pressure 140/62, and respirations 16. HEENT: Conjunctivae normal. CHEST: Clear to auscultation. CARDIOVASCULAR: S1 and S2. ABDOMEN: Soft, nontender. LEGS: No edema. No swelling. NERVOUS SYSTEM: No focal deficit. LABORATORY DATA: Reviewed. ASSESSMENT: 1. Severe hypercalcemia, dehydration, and syncope. 2. Severe hypokalemia. 3. Troponin 0.144, indeterminate. 4. Atrial fibrillation history. 5. Diabetes mellitus type 2. 6. Hypertension. 7. Hyperlipidemia. 8. History of skin cancer. 9. History of cardiac ablation. RECOMMENDATIONS AND DISCUSSION: This 69-year-old gentleman presented with severe significant hypercalcemia. At this time, I recommend continue the current medications. Continue with IV fluids. I would also recommend CT scan abdomen, pelvis, as well as PTH related polypeptide to complete the workup. Prognosis guarded. Further recommendations to follow. Monitor creatinine closely. The patient is taking up to 6 Tums tablets a day. MMODL / IJN: [id number] /
--- NOTE | 2024-10-30 08:24 | DS ---
DISCHARGE SUMMARY FINAL DIAGNOSES: 1. Severe hypercalcemia, etiology undetermined with dehydration and syncope present on admission. 2. Severe hypokalemia. 3. Troponin 0.145, indeterminate. 4. Atrial fibrillation history. 5. Diabetes mellitus, type 2. 6. Multiple medical issues. DISCHARGE DISPOSITION: The patient will be discharged in stable condition and guarded prognosis. HISTORY OF PRESENT ILLNESS: 69-year-old gentleman with a past medical problems, admitted with significant hypercalcemia. The patient was treated symptomatically. Nephrology saw the patient and thought the hypercalcemia was due to increased amount of Tums intake and PTH was within normal limits, but however, PTHrP is pending at this time. The patient is extremely keen on going home. He will be discharged with further plans to follow up with Dr. Howard and Endocrine in the outpatient setting. Discussed with Dr. Howard. The patient will require further evaluations. RECOMMENDATION AND DISCUSSION: Recommend to continue the home medications and hold Tums. Follow up with Endocrine and Cardiology as recommended and further recommendations to follow. CAT scan of the abdomen and pelvis was normal. MMODL / IJN: [id number] /
== END 2024-10-29 14:25 | disposition home or self-care (01) | DRG 641 ==
LOC: EC 23:50 → 6NMEDSUR 10-27 04:15 → OBSVTOIN 10-27 04:15 → 6NMEDSUR 10-27 07:10
PROVIDERS: ADMIT Internal Medicine; ATTEND Internal Medicine
DX: E83.52 Hypercalcemia (principal); S09.90XA Unspecified injury of head, initial encounter; E87.1 Hypo-osmolality and hyponatremia; N17.9 Acute kidney failure, unspecified; E86.0 Dehydration; I48.0 Paroxysmal atrial fibrillation; E11.51 Type 2 diabetes mellitus with diabetic peripheral angiopathy without gangrene; I10 Essential (primary) hypertension; T47.1X5A Adverse effect of other antacids and anti-gastric-secretion drugs, initial encounter; T50.2X5A Adverse effect of carbonic-anhydrase inhibitors, benzothiadiazides and other diuretics, initial encounter; R79.89 Other specified abnormal findings of blood chemistry; E78.5 Hyperlipidemia, unspecified; E83.42 Hypomagnesemia; E86.1 Hypovolemia; E87.6 Hypokalemia; Z79.01 Long term (current) use of anticoagulants; X58.XXXA Exposure to other specified factors, initial encounter; Z79.82 Long term (current) use of aspirin; Z79.84 Long term (current) use of oral hypoglycemic drugs; Z79.899 Other long term (current) drug therapy; Z85.828 Personal history of other malignant neoplasm of skin; Z87.891 Personal history of nicotine dependence; Z88.2 Allergy status to sulfonamides; Z86.79 Personal history of other diseases of the circulatory system; Y92.099 Unspecified place in other non-institutional residence as the place of occurrence of the external cause
CPT/HCPCS: 36415; 70450; 71250; 72125; 74176; 76770; 80048; 80053; 80320; 81003; 82164; 82306; 82652; 83036; 83735; 83930; 83935; 83970; 84295; 84300; 84484; 85025; 85379; 85610; 85730; 86334; 86335; 93005; 93306; 96360; 96361; 99285

== ENCOUNTER → 2024-11-05 | Outpatient (CLI) | payer OTHER | END | disposition home or self-care (01) | LOC: LABWHC1 07:46 | PROVIDERS: ATTEND Family Medicine | DX: E87.1 Hypo-osmolality and hyponatremia (principal) | CPT/HCPCS: 36415; 83880; 83970 ==

== ENCOUNTER → 2024-12-05 | Outpatient (CLI) | payer OTHER ==
[2024-12-05 15:48] LABS: Basophils # (A) 0.03 X 10*3/uL (0.00-0.10); Basophils % (A) 0.4 %; Eosinophils % (A) 1.2 %; HCT 38.1 % (39.6-50.0); HGB 13.2 g/dL (13.0-17.0); Lymphocytes # (A) 3.31 X 10*3/uL (0.90-5.00); Lymphocytes % (A) 40.4 %; MCH 32.8 pg (27.0-32.0); MCHC 34.6 g/dL (32.0-37.0); MCV 94.5 FL (80.0-97.0); Mean Platelet Volume 9.5 FL (9.5-12.2); Monocytes # (A) 0.72 X 10*3/uL (0.20-1.00); Monocytes % (A) 8.8 %; NRBC Per 100 WBC 0 X 10*3/uL (0.00-0.01); Neutrophils % (A) 48.7 %; Platelet Count 228 X 10*3/uL (140-440); RBC 4.03 X 10*6/uL (4.40-5.60); RDW 14.2 % (11.5-14.5)
[2024-12-05 16:18] LABS: ALT 69 U/L (10-49); AST 89 U/L (14-35); Albumin 4.1 g/dL (3.8-4.9); Albumin/Globulin Ratio 1.71 Ratio (1.60-3.17); Alkaline Phosphatase 50 U/L (41-126); BUN/Creat Ratio 24.21 Ratio (12.00-20.00); Blood Urea Nitrogen 33.9 mg/dL (9.0-27.0); Calcium 9.7 mg/dL (8.7-10.3); Carbon Dioxide 28.6 mmol/L (21.6-31.8); Chloride 90 mmol/L (96-109); Globulin 2.4 g/dL (1.6-3.3); Glucose 99 mg/dL (70-110); Potassium 3.1 mmol/L (3.5-5.5); Sodium 134 mmol/L (135-145); Total Bilirubin 0.9 mg/dL (0.3-1.2); Total Protein 6.5 g/dL (6.2-8.2)
== END | disposition home or self-care (01) ==
LOC: LABWHC1 10:54
PROVIDERS: ATTEND Family Medicine
DX: E11.22 Type 2 diabetes mellitus with diabetic chronic kidney disease (principal); N18.9 Chronic kidney disease, unspecified; E83.52 Hypercalcemia
CPT/HCPCS: 36415; 80053; 82306; 83036; 83970; 85025

== ENCOUNTER → 2024-12-22 | Outpatient (CLI) | payer OTHER ==
[2024-12-22 15:48] LABS: Anion Gap 13.9 mmol/L (4.00-12.00); Carbon Dioxide 26.1 mmol/L (21.6-31.8); Chloride 94.0 mmol/L (96-109); Potassium 3.2 mmol/L (3.5-5.5); Sodium 134.0 mmol/L (135-145)
== END | disposition home or self-care (01) ==
LOC: LABWHC1 09:32
PROVIDERS: ATTEND Family Medicine
DX: E87.6 Hypokalemia (principal)
CPT/HCPCS: 36415; 80051

== ENCOUNTER → 2024-12-30 | Outpatient (CLI) | payer OTHER | END | disposition home or self-care (01) | LOC: LABWHC1 08:18 | PROVIDERS: ATTEND Family Medicine | DX: E87.6 Hypokalemia (principal) | CPT/HCPCS: 36415; 84132 ==

== ENCOUNTER → 2025-01-16 | Outpatient (CLI) | payer OTHER, MEDICARE | END | disposition home or self-care (01) | LOC: LABWHC1 09:46 | PROVIDERS: ATTEND Family Medicine | DX: E87.6 Hypokalemia (principal) | CPT/HCPCS: 36415; 84132 ==